=== PATIENT | female | born 1990 | race Caucasian/White ===

== ENCOUNTER → 2018-01-10 13:47 | Outpatient (REF) | payer MEDICAID, SELFPAY ==
[2018-01-10 19:00] LABS: Basophils % 0.4 % (0.1-2.0); Eosinophils # 0.3 K/mm3 (0.0-0.4); Hematocrit 42.8 % (37.0-47.0); Hemoglobin 13.3 g/dL (12.2-16.2); Lymphocytes % 19.8 K/mm3 (10-50); Mean Corpuscular HGB Conc 31.1 g/dL (31.8-35.4); Mean Corpuscular Hemoglobin 25.1 pg (27.0-31.2); Mean Corpuscular Volume 80.7 fl (81-99); Mean Platelet Volume 8.5 fl (7.4-10.4); Monocytes # 0.7 K/mm3 (0.1-1.0); Monocytes % 6.6 % (1.7-9.3); Neutrophils # 7.1 K/mm3 (1.8-7.8); Neutrophils % 70.2 % (37.0-80.0); Platelet Count 412 K/mm3 (142-424); Red Cell Distribution Width 15.8 % (11.5-17.5); White Blood Count 10.1 K/mm3 (4.8-10.8)
[2018-01-10 19:41] LABS: Alanine Aminotransferase 160 U/L (12-78); Albumin Level 3.8 gm/dL (3.4-5.0); Alkaline Phosphatase 157 U/L (46-116); Anion Gap 14.4 mEq/L (5-15); Aspartate Amino Transferase 83 U/L (15-37); Bilirubin,Total 0.2 mg/dL (0.2-1.0); Blood Urea Nitrogen 8 mg/dL (7-18); Calcium 9.4 mg/dL (8.5-10.1); Carbon Dioxide 27 mmol/L (21.0-32.0); Chloride 103 mmol/L (98-107); Cholesterol 131 mg/dL (140-200); Creatinine,Serum 0.56 mg/dL (0.55-1.02); Estimated Glomerular Filt Rate 128 ml/min (>60); GFR (African American) 155 ML/MIN (>60); Globulin 3.9 gm/dl (1.3-3.2); Glucose 80 mg/dL (74-106); HDL Cholesterol 33 mg/dL (29-89); LDL Cholesterol 68 mg/dL (0-130); Potassium 4.4 mmoL/L (3.5-5.1); Sodium 140 mmol/L (136-145); T4 (Thyroxine) 10.4 ug/dl (4.7-13.3); Thyroid Stimulating Hormone 7.19 uIU/ml (0.358-3.740); Total Protein,Serum 7.7 gm/dL (6.4-8.2); Triglycerides 148 mg/dL (30-200); VLDL Cholesterol 30 mg/dL (0-40)
[2018-01-11 06:46] LABS: Hemoglobin A1C 6.8 % (0.0-7.0)
[2018-01-12 09:20] LABS: Hep A Ab, IgM Negative (Negative); Hepatitis B Core Antibody IgM Negative (Negative); Hepatitis B Surface Antigen Negative (Negative)
[2018-01-13 10:41] LABS: Vitamin D 25 Hydroxy 15.6 ng/mL (30.0-100.0)
[2018-01-13 10:42] LABS: Hepatitis C Antibody <0.1 s/co ratio (0.0-0.9); Thyroid Peroxidase Antibodies 23 IU/mL (0-34)
[2018-01-16 14:18] LABS: Thyroid Stimulating Immunoglob <0.10 IU/L (0.00-0.55)
== END ==
LOC: LAB 13:47
PROVIDERS: Visit Provider Physician Assistant
DX: R53.83 Other fatigue (principal); R63.5 Abnormal weight gain; R01.1 Cardiac murmur, unspecified
CPT/HCPCS: 80053; 80061; 80074; 82652; 83036; 83520; 84436; 84443; 85025; 86376; 86703; G0432

== ENCOUNTER → 2018-01-16 12:02 | Outpatient (CLI) | payer MEDICAID, SELFPAY ==
[2018-01-17 12:09] LABS: HIV Screen 4th Generation wRfx Non Reactive (Non Reactive)
== END ==
PROVIDERS: Visit Provider Physician Assistant
DX: Z20.2 Contact with and (suspected) exposure to infections with a predominantly sexual mode of transmission (principal)
CPT/HCPCS: 36415; 86703; G0432

== ENCOUNTER → 2018-01-23 09:36 | Outpatient (CLI) | payer MEDICAID, SELFPAY ==
--- NOTE | 2018-01-23 09:39 | CA_ITS ---
PROCEDURE: 2-D M-mode and color Doppler study INDICATIONS FOR THE TEST: Chest pain COPD Heart Murmur+ Tobacco Smoking Palpitations Fatigue Syncope Edema Hypertension Diabetes Mellitus Rheumatic Fever SOB BERGERON Obesity Hyperlipidemia Family History HD Additional History PATIENT INFORMATION HEIGHT: 64 WEIGHT:285 GENDER: Female B/P:126/78 2-D/M-MODE INTERPRETATION: 2-D MEASUREMENTS OBSERVED VALUES IN CMS Right Ventricular Dimension (RVDd) 2.2 Interventricular Septum (Thickness)(IVsd) 1.3 Left Ventricular Internal Dimensions(LVIDd) 4.8 Left Ventricular Posterior Wall (Thickness)(LVPWd) 0.9 Aortic Root 2.4 Aortic Cusp Separation 1.8 Left Atrial Dimensions (LAD) 4.0 2D 1. Left atrium is upper limit of normal size, left ventricle wall thickness is upper limit of normal, there is preserved left ventricular systolic function, visually estimated ejection fraction 55-60% with no obvious regional wall motion abnormality. 2. The right atrium and right ventricle are relatively normal size and function. 3. The aortic valve is minimally thickened and fibrosed. 4. The mitral and tricuspid valvular grossly normal. 5. The pulmonic valve is poorly visualized. 6. No significant pericardial effusion noted. DOPPLER INTERROGATION: Doppler interrogation of the aortic, mitral and tricuspid valvular presence of mild mitral and tricuspid regurgitation, tricuspid and jet velocity insufficient for calculation of the right ventricular systolic pressure, diastolic parameters are inconclusive. CONCLUSION: 1. Normal left ventricular size, preserved left ventricular systolic function, visually estimated ejection fraction 55-60% no signal wall motion abnormality, diastolic parameters are inconclusive. 2. Mild mitral and tricuspid regurgitation. 3. No significant pericardial effusion noted.
== END ==
PROVIDERS: PCP Physician Assistant; Visit Provider Physician Assistant
DX: R01.1 Cardiac murmur, unspecified (principal)
CPT/HCPCS: 93306

== ENCOUNTER → 2018-04-27 11:56 | Outpatient (REF) | payer MEDICAID, SELFPAY ==
[2018-04-27 19:14] LABS: Basophils % 0.4 % (0.1-2.0); Eosinophils # 0.3 K/mm3 (0.0-0.4); Eosinophils % 3.3 % (0.1-12.0); Hematocrit 41.2 % (37.0-47.0); Hemoglobin 12.9 g/dL (12.2-16.2); Lymphocytes # 1.6 K/mm3 (0.7-4.5); Lymphocytes % 20.1 K/mm3 (10-50); Mean Corpuscular HGB Conc 31.3 g/dL (31.8-35.4); Mean Corpuscular Volume 83.1 fl (81-99); Mean Platelet Volume 8.2 fl (7.4-10.4); Monocytes # 0.4 K/mm3 (0.1-1.0); Monocytes % 4.8 % (1.7-9.3); Neutrophils # 5.9 K/mm3 (1.8-7.8); Neutrophils % 71.5 % (37.0-80.0); Platelet Count 313 K/mm3 (142-424); Red Blood Count 4.95 M/mm3 (4.20-5.40); Red Cell Distribution Width 15.2 % (11.5-17.5); White Blood Count 8.2 K/mm3 (4.8-10.8)
[2018-04-27 19:42] LABS: Alanine Aminotransferase 135 U/L (12-78); Albumin Level 3.7 gm/dL (3.4-5.0); Albumin/Globulin Ratio 0.9 (1.1-1.8); Alkaline Phosphatase 157 U/L (46-116); Anion Gap 13.2 mEq/L (5-15); Aspartate Amino Transferase 70 U/L (15-37); Bilirubin,Total 0.3 mg/dL (0.2-1.0); Blood Urea Nitrogen 9 mg/dL (7-18); Calcium 9.3 mg/dL (8.5-10.1); Carbon Dioxide 26 mmol/L (21.0-32.0); Chloride 104 mmol/L (98-107); Chol/HDL Ratio 3.6 (1-3.5); Cholesterol 128 mg/dL (140-200); Creatinine,Serum 0.82 mg/dL (0.55-1.02); Estimated Glomerular Filt Rate 82 ml/min (>60); Free T4 (Free Thyroxine) 1.44 ng/dl (0.76-1.46); GFR (African American) 100 ML/MIN (>60); Globulin 3.9 gm/dl (1.3-3.2); Glucose 202 mg/dL (74-106); HDL Cholesterol 36 mg/dL (29-89); LDL Cholesterol 67 mg/dL (0-130); Potassium 4.2 mmoL/L (3.5-5.1); Sodium 139 mmol/L (136-145); Thyroid Stimulating Hormone 4.55 uIU/ml (0.358-3.740); Total Protein,Serum 7.6 gm/dL (6.4-8.2); Triglycerides 127 mg/dL (30-200); VLDL Cholesterol 25 mg/dL (0-40)
[2018-04-29 18:04] LABS: Vitamin D 25 Hydroxy 34.8 ng/mL (30.0-100.0)
== END ==
LOC: LAB 11:56
PROVIDERS: Visit Provider Physician Assistant
DX: R74.8 Abnormal levels of other serum enzymes (principal); R63.5 Abnormal weight gain; E03.9 Hypothyroidism, unspecified; E55.9 Vitamin D deficiency, unspecified
CPT/HCPCS: 80053; 80061; 82652; 84439; 84443; 85025

== ENCOUNTER → 2019-03-20 16:53 | Outpatient (CLI) | payer BC, SELFPAY ==
--- NOTE | 2019-03-20 16:57 | XR_ITS ---
XR foot wt bearing LT 3V HISTORY: ITS.REASON: pain ORDERING PHYSICIAN: Sasha Rosario DPM PATIENT AGE: 28 years COMPARISON: None FINDINGS: No fracture or dislocation. No lytic or blastic change. There is normal mineralization.. The joint spaces are well-preserved. No significant degenerative/arthritic changes. No erosive changes evident. There is a 7 mm plantar calcaneal spur and flattening of the plantar arch. There is a 3 mm corticated ossific density just superior to one of the cuneiform bones on the lateral view. This is not seen on the other views. The cortex of the cuneiform bone is intact. IMPRESSION: No acute fracture. Flattening plantar arch. Calcaneal spur. Small corticated density adjacent to the cuneiform bone could be degenerative or related to old injury.
--- NOTE | 2019-03-20 16:57 | XR_ITS ---
XR foot wt bearing RT 3V HISTORY: ITS.REASON: pain ORDERING PHYSICIAN: Sasha Rosario DPM PATIENT AGE: 28 years COMPARISON: None FINDINGS: No fracture or dislocation. No lytic or blastic change. There is normal mineralization.. The joint spaces are well-preserved. No significant degenerative/arthritic changes. No erosive changes evident. There is a 7 mm plantar calcaneal spur. There is flattening of the plantar arch. IMPRESSION: No acute process. Plantar calcaneal spur. Flattening of the plantar arch.
== END ==
PROVIDERS: Visit Provider Podiatrist
DX: M79.673 Pain in unspecified foot (principal)
CPT/HCPCS: 73630

== ENCOUNTER 2020-05-01 09:40 | Emergency (ER) | payer BC, SELFPAY ==
[2020-05-01 09:41] VITALS: BP 132/74; PULSE 90; RESP 16; TEMP 37.4; O2SAT 98; BMI 40.7
--- NOTE | 2020-05-01 09:53 | HMH.EDGENADL ---
ED Disposition Clinical Impression: Upper respiratory infection Qualifiers: URI type: unspecified viral URI Qualified Code(s): J06.9 - Acute upper respiratory infection, unspecified Disposition: Home, Self-Care Condition on Discharge: Good Instructions: DI for Acute Bronchitis Additional Instructions: You appear to have upper respiratory tract infection please take medications prescribed Prescriptions: methylPREDNISolone [Medrol 4mg tab] 4 mg PO DIRECTED #21 tab Transmission Status: Pending to [id number] Cetirizine HCl [Zyrtec] 10 mg PO DAILY 10 Days #10 cap Transmission Status: Pending to [id number] Referrals: Meme Mckeon PA [Primary Care Provider] - Forms: Work/School Release - Critical Care Critical Care Time: No Attestation: On , the high probability of a clinically significant, sudden or life threatening deterioration of the following system(s) required my full and direct attention, intervention and personal management. The time I documented below is in addition to time spent performing reported procedures but includes the following listed in this critical care notation. Medical Decision Making - Medical Records Medical records reviewed: Yes: I reviewed the patient's medical records. MR Comment: Patient is here with a complaint of cough and congestion states she missed work last night, does not smoke and does not appear to be in any distress at this time. Plan is to discharge patient home with prescription for Medrol Dosepak as well as Zyrtec will also give her a note for work today - Luis Inquiry Pt receiving controlled substance: No Luis was queried for this patient: No Vital Signs: 05/01/20 09:41 Temperature 99.4 F Temperature Source Oral Pulse Rate [Left Brachial] 90 Respiratory Rate 16 Blood Pressure [Right Arm] 132/74 Blood Pressure Mean [Right Arm] 93 Blood Pressure Position [Right Arm] Sitting 02 Sat by Pulse Oximetry 98 Oxygen Delivery Method Room Air General Adult HPI - General Chief complaint: Upper Respiratory Infection Stated complaint: runny nose sore throat Time Seen by Provider: 05/01/20 09:51 Mode of Arrival: Ambulatory Source of Information: Patient Limitations: No Limitations Description of Symptoms (Recalled from ER Triage Doc. by RN): to ed per pvt car with c/o sorethroat, nasal drainage, cough nonproductive starting yesterday. pt denies fever, sick contacts. - History of Present Illness HPI narrative: Patient is here with a complaint of cough and congestion states she missed work last night, not smoke and does not appear to be in any distress at this time Onset (ago): day(s) Severity: mild Severity scale (1-10): 2 Quality: other Consistency: constant Relieving factors: none Exacerbating factors: none Associated symptoms: cough - Related Data Previous Rx's Medication Instructions Recorded promethazine 12.5 mg tablet 12.5 mg PO Q6H #10 tab 12/05/19 meloxicam 7.5 mg tablet 7.5 mg PO DAILY 30 Days #30 tab 12/17/19 Cetirizine HCl [Zyrtec] 10 mg PO DAILY 10 Days #10 cap 05/01/20 methylPREDNISolone [Medrol 4mg 4 mg PO DIRECTED #21 tab 05/01/20 tab] Allergies Allergy/AdvReac Type Severity Reaction Status Date / Time Sulfa (Sulfonamide Allergy Mild Verified 12/05/19 13:04 Antibiotics) [SULFA (SULFONAMIDE ANTIBIOTICS)] [facility] History - Hepatitis A Screen Drug use history?: No High risk sexual behaviors?: No History of sexually transmitted infection?: No Currently employed?: No Childcare worker?: No Do you have indoor plumbing?: Yes Do you have electricity?: Yes Attestation statement:: This patient has been screened for Hepatitis A risk factors. I have reviewed the patient's past medical history: Yes Medical History: Reports:: Anxiety, Depression, Heart Murmur Other Medical History: Reports: Other Comment: THYROID ISSUES Laterality Cases: Bilateral: Tonsillectomy Other Surgeries: Ye
[2020-05-01 10:15] VITALS: BP 132/75; PULSE 78; RESP 16; TEMP 36.6; O2SAT 98
== END 2020-05-01 10:16 | disposition home or self-care (01) ==
LOC: ER 10:09
PROVIDERS: Emergency Provider Emergency Medicine; PCP Physician Assistant
DX: J06.9 Acute upper respiratory infection, unspecified (principal); F41.8 Other specified anxiety disorders; R01.1 Cardiac murmur, unspecified; Z88.2 Allergy status to sulfonamides; Z79.899 Other long term (current) drug therapy
CPT/HCPCS: 99281

== ENCOUNTER → 2020-05-04 16:21 | Outpatient (CLI) | payer BC, SELFPAY ==
--- NOTE | 2020-05-04 20:03 | PC.NURSE ---
COVID TEST POSITIVE, PATIENT NOTIFIED, MD AWARE OF RESULTS.
== END ==
PROVIDERS: PCP Physician Assistant; Visit Provider Nurse Practitioner Family
DX: Z20.828 Contact with and (suspected) exposure to other viral communicable diseases (principal); U07.1 COVID-19
CPT/HCPCS: U0003

== ENCOUNTER → 2020-10-20 18:10 | Outpatient (CLI) | payer BC, SELFPAY ==
[2020-10-22 11:54] LABS: Covid-19 Nasal PCR Sendout P&C Negative
== END ==
PROVIDERS: PCP Physician Assistant; Visit Provider Physician Assistant
DX: Z20.822 Contact with and (suspected) exposure to COVID-19 (principal)
CPT/HCPCS: U0004

== ENCOUNTER → 2020-10-23 17:59 | Outpatient (CLI) | payer BC, SELFPAY ==
[2020-10-23 18:17] LABS: Basophils % 0.4 % (0.1-2.0); Eosinophils # 0.3 K/mm3 (0.0-0.4); Eosinophils % 2.8 % (0.1-12.0); Hematocrit 41.2 % (37.0-47.0); Hemoglobin 12.8 g/dL (12.2-16.2); Lymphocytes # 2.2 K/mm3 (0.7-4.5); Lymphocytes % 21.6 % (10-50); Mean Corpuscular Hemoglobin 25.2 pg (27.0-31.2); Mean Corpuscular Volume 81.2 fl (81-99); Mean Platelet Volume 7.3 fl (7.4-10.4); Monocytes # 0.6 K/mm3 (0.1-1.0); Monocytes % 5.8 % (1.7-9.3); Neutrophils % 69.4 % (37.0-80.0); Platelet Count 392 K/mm3 (142-424); Red Blood Count 5.08 M/mm3 (4.20-5.40); Red Cell Distribution Width 14.2 % (11.5-17.5); White Blood Count 10.1 K/mm3 (4.8-10.8)
[2020-10-23 18:21] LABS: Alanine Aminotransferase 60 U/L (12-78); Albumin Level 4.3 g/dl (3.5-5.0); Albumin/Globulin Ratio 1.3 (1.1-1.8); Alkaline Phosphatase 121 U/L (38-126); Anion Gap 15.9 mEq/L (5-15); Aspartate Amino Transferase 43 U/L (14-36); Bilirubin,Total 0.4 mg/dl (0.2-1.3); Blood Urea Nitrogen 12 mg/dl (7-17); Calcium 9.9 mg/dl (8.4-10.2); Carbon Dioxide 25 mmol/L (22.0-30.0); Chloride 101 mmol/L (98-107); Chol/HDL Ratio 3.6 (1-3.5); Cholesterol 153 mg/dl (140-200); Estimated Glomerular Filt Rate 116 ml/min (>60); GFR (African American) 140 ML/MIN (>60); Globulin 3.3 g/dL (1.3-3.2); Glucose 137 mg/dl (74-100); HDL Cholesterol 42 mg/dl (40-60); Potassium 3.9 mmoL/L (3.5-5.1); Sodium 138 mmol/L (136-145); Total Protein,Serum 7.6 g/dl (6.3-8.2); Triglycerides 347 mg/dl (30-150); VLDL Cholesterol 69 mg/dL (0-40)
[2020-10-23 18:33] LABS: Direct LDL Cholesterol 60.73 mg/dL (100-129)
[2020-10-23 18:39] LABS: 25-OH Vitamin D, Total 19.3 ng/mL (30-100)
[2020-10-23 18:57] LABS: Free T4 (Free Thyroxine) 0.86 ng/dl (0.78-2.19)
== END ==
PROVIDERS: Visit Provider Physician Assistant
DX: Z00.00 Encounter for general adult medical examination without abnormal findings (principal); E55.9 Vitamin D deficiency, unspecified; Z79.899 Other long term (current) drug therapy
CPT/HCPCS: 80053; 80061; 82306; 84439; 84443; 85025

== ENCOUNTER → 2020-11-13 13:27 | Outpatient (CLI) | payer BC, SELFPAY ==
--- NOTE | 2020-11-13 13:31 | XR_ITS ---
PROCEDURE: XR RIBS LT MIN 3V W CXR2V CLINICAL INDICATION: left rib pain COMPARISON: None FINDINGS: Lungs are well expanded and clear without pneumothorax pulmonary edema, pleural effusion, infiltrate or x-ray evidence of lung contusion or aspiration. Cardiac and mediastinal contours are within normal limits. Subtle nondisplaced left anterolateral rib fracture with focal pleural thickening suspected visible only on one view. There is no pneumothorax. No additional areas suspicious for fracture. IMPRESSION: Suspect nondisplaced left 5th rib fracture. No pneumothorax. Dictated by: Oneida Camacho MD 11/13/2020 14:50 Oneida Camacho MD in [place] 11/13/2020 14:50
== END ==
PROVIDERS: PCP Physician Assistant; Visit Provider Physician Assistant
DX: R05 Cough (principal)
CPT/HCPCS: 71046; 71101

== ENCOUNTER 2020-11-15 17:38 | Emergency (ER) | payer BC, SELFPAY ==
[2020-11-15 17:47] VITALS: BP 135/76; PULSE 83; RESP 18; TEMP 36.8; O2SAT 99; BMI 41.0
[2020-11-15 18:07] VITALS: BP 135/76; PULSE 83; RESP 18; TEMP 36.8; O2SAT 99; BMI 40.9
--- NOTE | 2020-11-15 18:18 | HMH.EDUTC ---
[facility] [place] Clinical Impression: Rib fracture Qualifiers: Encounter type: initial encounter Rib fracture type: single rib Fracture type: closed Laterality: left Qualified Code(s): S22.32XA - Fracture of one rib, left side, initial encounter for closed fracture Disposition: Home, Self-Care Condition on Discharge: Good Instructions: Rib Fracture, DI for Rib Fracture Additional Instructions: WHAT YOU NEED TO KNOW: A rib fracture is a crack or break in a rib bone. Rib fractures usually heal within 6 weeks. You should be able to return to normal activities before that time. Do not wrap anything around your body to try to splint your ribs. This can prevent you from taking deep breaths and increases your risk for pneumonia Call 911 You have trouble breathing. Follow up with your healthcare provider as directed: Deep breathing: Deep breathing will decrease your risk for pneumonia. Hug a pillow on the injured side while doing this exercise, to decrease pain. Take a deep breath and hold it for as long as possible. You should let the air out and then cough strongly. Deep breaths help open your airway. Rest: Rest and limit activity to decrease swelling and pain, and allow your injury to heal. Avoid activities that may cause more pain or damage to your ribs such as, pulling, pushing, and lifting. As your pain decreases, begin movements slowly. Take short walks between rest periods. Ice: Apply ice on the fractured area for 15 to 20 minutes every hour or as directed. Use an ice pack or put crushed ice in a plastic bag. Cover it with a towel. Ice helps prevent tissue damage and decreases swelling and pain. Over the counter Lidocaine/Pain patches may help with pain and discomfort with rib fractures Return if needed Straight to ER if any life threatening symptoms, sudden onset of shortness of breath etc Follow up with your Family Doctor if no improvement, rib fracture can take a little while to heal Continue using pillow on area may help with pain Do not wrap the ribs, this was done in the past but no longer recommended due to Pneumonia Referrals: Meme Mckeon PA [Primary Care Provider] - As needed Time of Disposition: 18:41 Medical Decision Making - Luis Inquiry Pt receiving controlled substance: No Luis was queried for this patient: No Vital Signs: 11/15/20 17:47 11/15/20 18:07 Temperature 98.2 F 98.2 F Temperature Source Oral Oral Pulse Rate [Left Radial] 83 83 Respiratory Rate 18 18 Blood Pressure [Left Arm] 135/76 135/76 Blood Pressure Mean [Left Arm] 95 95 Blood Pressure Source [Left Arm] Automatic Cuff Automatic Cuff Blood Pressure Position [Left Arm] Sitting Sitting 02 Sat by Pulse Oximetry 99 99 Oxygen Delivery Method Room Air Room Air Orders (Tests/Meds): ORDERS Category Date Time Status XR ribs LT 2V Stat Exams 11/15/20 18:00 Stop Req Medical Decision Narrative: Patient denies new injury discussed repeat xray but patient just had xray 2 days ago and came in to see what else she can take or do for the pain of fracture rib so xray not repeated Discussed the use of over the counter lidocaine patches may help with pain and if no improvement follow up with [facility] [place] HPI - General Stated complaint: Left rib fx from coughing Time Seen by Provider: 11/15/20 18:18 Mode of Arrival: Ambulatory Source of Information: Patient Limitations: No Limitations Description of Symptoms (Recalled from Triage Doc. by RN): pt c/o L sided rib pain, pt reports was told 2 days ago that she has a broken rib. Pt reports no injury but has had a cough for approx 1 month. Pt reports she is taking hydrocodone but reports pain is not improving. Pt denies SOA, no distress noted. HEENT Symptoms (Recalled from RN notes): No Resp Symptoms (Recalled from RN notes): No Skin Symptoms (Recalled from RN notes): No MS Symptoms (Recalled from RN notes): Yes Functional Status (Recalled from RN notes): WNL - History of Prese
[2020-11-15 18:45] VITALS: BP 135/76; PULSE 83; RESP 18; TEMP 36.8; O2SAT 99
== END 2020-11-15 18:49 | disposition home or self-care (01) ==
LOC: ER 17:51 → UTC 17:55
PROVIDERS: Emergency Provider Nurse Practitioner; PCP Physician Assistant
DX: S22.32XA Fracture of one rib, left side, initial encounter for closed fracture (principal); R05 Cough; F41.8 Other specified anxiety disorders; R01.1 Cardiac murmur, unspecified; Z88.2 Allergy status to sulfonamides
CPT/HCPCS: 99202; G0463

== ENCOUNTER → 2020-12-29 15:26 | Outpatient (CLI) | payer BC, SELFPAY ==
[2020-12-29 15:52] LABS: Amphetamine/Metha Screen,Urine Negative ng/ml (<1000); Barbiturates Screen,Urine Negative ng/ml (<200)
[2020-12-29 15:53] LABS: Benzodiazepines Screen,Urine Negative ng/ml (<200)
[2020-12-29 15:55] LABS: Cannabinoid Screen,Urine Negative ng/ml (<50)
[2020-12-29 15:56] LABS: Cocaine Screen,Urine Negative ng/ml (<300)
[2020-12-29 15:57] LABS: Methadone Screen,Urine Negative ng/ml (<300)
[2020-12-29 15:58] LABS: Opiate Screen,Urine Negative ng/ml (<300); Phencyclidine Screen,Urine Negative ng/ml (<25)
[2020-12-29 20:28] LABS: Hemoglobin A1C 5.9 % (4.0-6.0)
[2020-12-31 13:54] LABS: Hep A Ab, IgM Negative (Negative); Hepatitis B Core Antibody IgM Negative (Negative); Hepatitis B Surface Antigen Negative (Negative)
[2020-12-31 17:19] LABS: HIV Screen 4th Generation wRfx Non Reactive (Non Reactive); Hepatitis C Antibody <0.1 s/co ratio (0.0-0.9); Rapid Plasma Reagin Ab Titer Non Reactive (NonRea<1:1)
[2021-01-02 12:23] LABS: Neisseria gonorrhoeae, NAA Negative (Negative)
== END ==
PROVIDERS: Visit Provider Physician Assistant
DX: Z20.2 Contact with and (suspected) exposure to infections with a predominantly sexual mode of transmission (principal); R73.09 Other abnormal glucose; Z79.899 Other long term (current) drug therapy
CPT/HCPCS: 80074; 80305; 83036; 86592; 86703; 87491; 87591; G0432

== ENCOUNTER → 2021-02-26 10:06 | Outpatient (CLI) | payer BC, SELFPAY ==
[2021-03-02 17:48] LABS: Neisseria gonorrhoeae, NAA Negative (Negative)
== END ==
PROVIDERS: Visit Provider Nurse Practitioner Family
DX: Z20.2 Contact with and (suspected) exposure to infections with a predominantly sexual mode of transmission (principal)
CPT/HCPCS: 87210; 87491; 87591

== ENCOUNTER → 2021-08-21 12:47 | Outpatient (CLI) | payer BC, SELFPAY ==
--- NOTE | 2021-08-21 12:53 | XR_ITS ---
PROCEDURE: XR FOOT WT BEARING RT 3V CLINICAL INDICATION: pain COMPARISON: No exams were available for comparison FINDINGS: No fracture or dislocation. No lytic or blastic change. There is normal mineralization. Mild bony hypertrophic changes along the 1st tarsal metatarsal junction anteriorly. Small calcaneal spur. IMPRESSION: Mild degenerative changes. Dictated by: Owen Carrillo MD 08/21/2021 14:35 Owen Carrillo MD in [place] 08/21/2021 14:35
== END ==
PROVIDERS: PCP Physician Assistant; Visit Provider Nurse Practitioner
DX: M79.671 Pain in right foot (principal)
CPT/HCPCS: 73630

== ENCOUNTER → 2021-09-29 18:03 | Outpatient (CLI) | payer BC, SELFPAY | PROVIDERS: PCP Physician Assistant; Visit Provider Nurse Practitioner | DX: Z20.822 Contact with and (suspected) exposure to COVID-19 (principal) | CPT/HCPCS: C9803; U0003; U0005 ==

== ENCOUNTER 2021-10-10 22:22 | Emergency (ER) | payer BC, SELFPAY ==
[2021-10-10 22:23] VITALS: BP 144/99; PULSE 77; RESP 16; TEMP 36.7; O2SAT 98; BMI 41.5
--- NOTE | 2021-10-10 22:33 | HMH.EDGENADL ---
ED Disposition Clinical Impression: Left wrist sprain Qualifiers: Encounter type: initial encounter Qualified Code(s): S63.502A - Unspecified sprain of left wrist, initial encounter Disposition: Home, Self-Care Condition on Discharge: Good Instructions: Sprain Additional Instructions: Return to the emergency department for any new or concerning symptoms, if you're continuing to have significant pain recommend a repeat x-ray and 1.5 weeks. Referrals: Provider,Referral, [Primary Care Provider] - - Critical Care Critical Care Time: No Attestation: On 10/10/21, the high probability of a clinically significant, sudden or life threatening deterioration of the following system(s) required my full and direct attention, intervention and personal management. The time I documented below is in addition to time spent performing reported procedures but includes the following listed in this critical care notation. Medical Decision Making - Medical Records Medical records reviewed: Yes: I reviewed the patient's medical records. - Luis Inquiry Pt receiving controlled substance: No Vital Signs: 10/10/21 22:23 Temperature 98.1 F Temperature Source Oral Pulse Rate [Left] 77 Respiratory Rate 16 Blood Pressure [Right Arm] 144/99 H Blood Pressure Mean [Right Arm] 114 02 Sat by Pulse Oximetry 98 Orders (Tests/Meds): ED MEDICATIONS Discontinued Medications Generic Name Dose Route Start Last Admin Trade Name Jesica PRN Reason Stop Dose Admin Acetaminophen 650 mg 10/10/21 22:39 Acetaminophen 650mg Suppository RC 10/10/21 22:40 ONCE ONE Acetaminophen 650 mg 10/10/21 23:06 10/10/21 23:07 Acetaminophen 325mg Tab PO 10/10/21 23:07 650 mg ONCE ONE Administration Ibuprofen 600 mg 10/10/21 22:39 10/10/21 22:50 Ibuprofen 600 Mg Tablet PO 10/10/21 22:40 600 mg ONCE ONE Administration Medical Decision Narrative: Patient is a 31-year-old female who presents emerged department chief complaint of a fall and wrist pain. Differential diagnosis for the patient includes radial fracture, ulnar fracture, contusion, sprain among others. Plan to order x-rays of the patient's hand as well as the patient's left forearm. X-rays are nonconcerning for acute fracture. Patient has some mild tenderness on the palmar aspect. Will give velcro wrist splint. Discussed with patient if she continues to have pain, she has more pain on her fourth aspect she may need repeat x-ray and 1 and half to 2 weeks. General Adult HPI - General Stated complaint: AO fall 1800 injured L wrist Time Seen by Provider: 10/10/21 22:34 - History of Present Illness HPI narrative: Patient is a 31-year-old female presenting to the emergency department with chief complaint of a fall. Patient states that she tripped and fell she attempted to catch herself, and caught herself partially on her wrist. She is mostly complaining of left wrist pain. She has no numbness or tingling but has pain with movement of her wrist. Some mild abrasion just over the area of her ventral wrist at an area of eczema. She denies any additional injuries, has no additional complaints. She did not take anything for the pain prior to presenting here. - Related Data Home Medications Medication Instructions Recorded Confirmed acetaminophen 325 mg capsule 325 mg PO QID PRN 07/15/21 07/15/21 Previous Rx's Medication Instructions Recorded meloxicam 7.5 mg tablet 7.5 mg PO DAILY 30 Days #30 tab 08/24/21 Allergies Allergy/AdvReac Type Severity Reaction Status Date / Time Sulfa (Sulfonamide Allergy Mild Verified 07/15/21 14:17 Antibiotics) [SULFA (SULFONAMIDE ANTIBIOTICS)] [facility] History - Hepatitis A Screen Attestation statement:: This patient has been screened for Hepatitis A risk factors. I have reviewed the patient's past medical history: Yes Medical History: Reports:: Anxiety, Depression, Heart Murmur Other Medical H
--- NOTE | 2021-10-10 22:37 | XR_ITS ---
PROCEDURE INFORMATION: Exam: XR Left Forearm Exam date and time: 10/10/2021 10:37 PM Age: 31 years old Clinical indication: Injury or trauma; Fall; Blunt trauma (contusions or hematomas); Hand; Left; Additional info: Anterior wrist pain, fall TECHNIQUE: Imaging protocol: XR Left forearm. Views: 2 views. COMPARISON: CR XR HAND LT MIN 3V 10/10/2021 10:37 PM FINDINGS: Bones/joints: Normal. Soft tissues: Normal. IMPRESSION: No acute findings.
--- NOTE | 2021-10-10 22:37 | XR_ITS ---
PROCEDURE INFORMATION: Exam: XR Left Hand Exam date and time: 10/10/2021 10:37 PM Age: 31 years old Clinical indication: Injury or trauma; Fall; Blunt trauma (contusions or hematomas); Hand; Left; Additional info: Fall, C/O pain in left palm into left anterior wrist area TECHNIQUE: Imaging protocol: XR Left hand. Views: 3 or more views. COMPARISON: No relevant prior studies available. FINDINGS: Bones/joints: Normal. Soft tissues: Normal. IMPRESSION: No acute findings.
[2021-10-10 23:01] VITALS: BP 130/90; PULSE 83; O2SAT 97
[2021-10-11 00:15] VITALS: BP 140/73; PULSE 82; RESP 16; TEMP 36.6; O2SAT 98
== END 2021-10-11 00:17 | disposition home or self-care (01) ==
PROVIDERS: Emergency Provider Emergency Medicine
DX: S63.502A Unspecified sprain of left wrist, initial encounter (principal); W01.0XXA Fall on same level from slipping, tripping and stumbling without subsequent striking against object, initial encounter; Y92.019 Unspecified place in single-family (private) house as the place of occurrence of the external cause; Z88.2 Allergy status to sulfonamides; R01.1 Cardiac murmur, unspecified
CPT/HCPCS: 73090; 73130; 99282

== ENCOUNTER → 2021-10-14 12:09 | Outpatient (CLI) | payer BC, SELFPAY ==
--- NOTE | 2021-10-14 12:17 | XR_ITS ---
FINAL REPORT CLINICAL HISTORY: left thumb pain ordered as left wrist with scaphoid FINDINGS: LEFT WRIST 3 views were obtained including a scaphoid view. There is no acute fracture or dislocation. The joint spaces are intact. There is a small calcification adjacent to the trapezium which may represent a small loose body. IMPRESSION: No acute bony abnormality. Reviewed, Interpreted and Dictated by Pancho Duran III, MD Transcribed by Annetta Gonzalez Authenticated by Pancho Duran III, MD on 10/14/2021 01:27:50 PM [facility]
== END ==
LOC: RAD 12:10
PROVIDERS: PCP Physician Assistant; Visit Provider Physician Assistant
DX: M79.645 Pain in left finger(s) (principal); M25.532 Pain in left wrist
CPT/HCPCS: 73110

== ENCOUNTER 2021-10-14 12:28 | Outpatient (RCR) | payer BC, SELFPAY | END 2021-10-14 13:27 | disposition home or self-care (01) | LOC: OT 12:28 | PROVIDERS: Visit Provider Physician Assistant | DX: M79.645 Pain in left finger(s) (principal) | CPT/HCPCS: 97763 ==

== ENCOUNTER → 2021-10-26 08:30 | Outpatient (CLI) | payer BC, SELFPAY ==
[2021-10-27 06:42] LABS: Covid-19 Nasal PCR Sendout Lex NOT DETECTED
== END ==
PROVIDERS: Visit Provider Nurse Practitioner
DX: Z20.822 Contact with and (suspected) exposure to COVID-19 (principal)
CPT/HCPCS: C9803; U0004; U0005

== ENCOUNTER 2022-01-25 19:17 | Emergency (ER) | payer BC, SELFPAY ==
[2022-01-25 19:53] VITALS: BP 0/0; PULSE 0; RESP 0; TEMP -17.7; TEMP 0
== END 2022-01-25 19:54 | disposition left against medical advice (07) ==
LOC: UTC 19:20
PROVIDERS: Emergency Provider Nurse Practitioner Family; PCP Physician Assistant
DX: Z53.21 Procedure and treatment not carried out due to patient leaving prior to being seen by health care provider (principal)

== ENCOUNTER 2022-05-05 09:15 | Emergency (ER) | payer BC, SELFPAY ==
[2022-05-05 10:00] VITALS: BP 126/78; PULSE 77; RESP 18; TEMP 36.6; O2SAT 97; BMI 39.5
[2022-05-05 10:37] VITALS: BP 126/78; PULSE 77; RESP 18; TEMP 36.6; O2SAT 97
--- NOTE | 2022-05-05 10:38 | HMH.EDUTC ---
[facility] [place] Clinical Impression: Acute viral syndrome, Exposure to COVID-19 virus Disposition: Home, Self-Care Condition on Discharge: Good Instructions: Diarrhea, DI for Fever (Symptom) -- Adult, DI for COVID-19 (Suspected or Confirmed ), Preventing the Spread of Coronavirus Discharge Instructions Additional Instructions: *Monitor Temp, Over the counter Motrin or Tylenol as directed/as needed Tylenol every 4 hours and Motrin every 6 hours (as long as your family doctor has told you that you can take it) for fever or pain. and straight to ER if unable to lower temp less than 101.0 after medication given *Warm salt water gargles may help to soothe the throat *Throat Lozenges *Warm fluids like tea with honey may help to soothe the throat *Sleep elevated *Humidifier/Vaporizer Follow up IMMEDIATELY for new or worsening symptoms or no Noticeable improvement over the next 48-72 hours. 911 for difficulty breathing or swallowing You were tested for today for COVID19 your test result should be back in the next 24-48 hours, you may check your result on the [facility] My Health Portal Make sure to take your Vitamins Vit. C Vit D and Zinc if you can take them Referrals: Meme Mkceon PA [Primary Care Provider] - As needed Forms: Work/School Release Medical Decision Making - Luis Inquiry Pt receiving controlled substance: No Luis was queried for this patient: No Vital Signs: 05/05/22 10:00 05/05/22 10:37 Temperature 97.8 F 97.8 F Temperature Source Oral Pulse Rate 77 Pulse Rate [Right Brachial] 77 Respiratory Rate 18 18 Blood Pressure 126/78 Blood Pressure [Right Arm] 126/78 Blood Pressure Mean [Right Arm] 94 Blood Pressure Source [Right Arm] Automatic Cuff Blood Pressure Position [Right Arm] Sitting 02 Sat by Pulse Oximetry 97 Oxygen Delivery Method Room Air Orders (Tests/Meds): ORDERS Category Date Time Status Covid-19 Nasal PCR ([facility]) Routine Lab 05/05/22 10:00 Received [facility] [place]PI - General Stated complaint: [place], diarrhea, chills Time Seen by Provider: 05/05/22 10:39 Mode of Arrival: Ambulatory Source of Information: Patient Limitations: No Limitations Description of Symptoms (Recalled from Triage Doc. by RN): PATIENT C/O HEADACHE, BODY ACHES, CHILLS X 2 DAYS. RECENTLY EXPOSED TO COVID HEENT Symptoms (Recalled from RN notes): Yes Resp Symptoms (Recalled from RN notes): No Skin Symptoms (Recalled from RN notes): No MS Symptoms (Recalled from RN notes): No Functional Status (Recalled from RN notes): WNL - History of Present Illness Provider Complaint: Patient states that her daughter recently tested positive for COVID States that she has been having fever, chills, body aches and headache for the last couple of days and thinks that she may have COVID now too so she came in to get tested - Related Data Previous Rx's Medication Instructions Recorded ibuprofen 800 mg tablet 800 mg PO Q8H #90 tab 10/14/21 phentermine 37.5 mg tablet 37.5 mg PO DAILY #30 tab 10/14/21 Allergies Allergy/AdvReac Type Severity Reaction Status Date / Time Sulfa (Sulfonamide Allergy Mild Verified 10/14/21 08:49 Antibiotics) [SULFA (SULFONAMIDE ANTIBIOTICS)] - Worker's Comp Is this a Worker's Comp case?: No [facility] History - Hepatitis A Screen Attestation statement:: This patient has been screened for Hepatitis A risk factors. I have reviewed the patient's past medical history: Yes Medical History: Reports:: Anxiety, Depression, Heart Murmur Other Medical History: Reports: Other Comment: THYROID ISSUES Laterality Cases: Bilateral: Tonsillectomy Other Surgeries: Yes: Other Amputation: No Fractures: No Comment: RIGHT OVARY TUMOR REMOVED - Social History Smoking Status: Never smoker Alcohol Intake: never Alcohol Intake Frequency:: other Substance Use Type: denies use Occupational Status: other Housing: other Household Members: other - Psychiatric History Pschych
== END 2022-05-05 10:58 | disposition home or self-care (01) ==
PROVIDERS: Emergency Provider Nurse Practitioner; PCP Physician Assistant
DX: B34.9 Viral infection, unspecified (principal); R19.7 Diarrhea, unspecified; R68.83 Chills (without fever)
CPT/HCPCS: 99212; C9803; G0463; U0003; U0005

== ENCOUNTER 2022-08-23 12:59 | Emergency (ER) | payer BC, SELFPAY ==
[2022-08-23 13:01] VITALS: BP 134/84; PULSE 81; RESP 16; TEMP 36.8; O2SAT 98; BMI 39.5
--- NOTE | 2022-08-23 13:27 | XR_ITS ---
FINAL REPORT CLINICAL HISTORY: fever COMPARISON: 08/09/2022 FINDINGS: PORTABLE CHEST The heart is normal in size. The mediastinum is unremarkable. The lungs are clear. There is no pneumothorax. IMPRESSION: No acute process. No change from the prior exam. Reviewed, Interpreted and Dictated by Jana Smart MD Transcribed by Annetta Gonzalez Authenticated and [facility]
--- NOTE | 2022-08-23 14:53 | HMH.EDGENADL ---
Discharge Plan Disposition Chief Complaint: Upper Respiratory Infection Prescriptions Prescriptions: No Action phentermine [Adipex-P] 37.5 mg tablet 37.5 mg PO DAILY Qty: 30 0RF Rx Instructions: must administer 30 minutes before or 1-2 hours after breakfast ibuprofen 800 mg tablet 800 mg PO Q8H Qty: 90 2RF Referrals Follow up/Referrals: Meme Mckeon PA [Primary Care Provider] - See instructions Discharge ED Provider: Terry Linares Adult HPI General Chief complaint: Upper Respiratory Infection Stated complaint: headache soa head congestion Time Seen by Provider: 08/23/22 13:24 Mode of Arrival: Ambulatory Limitations: No Limitations Description of Symptoms (Recalled from ER Triage Doc. by RN): pt c/o headache, body aches, and cough that started 2 days ago History of Present Illness HPI narrative: Patient presents with body aches, headache congestion and sore throat began yesterday. Patient describes symptoms as moderate and without exacerbating or alleviating factors. Related Data Previous Rx's Medication Instructions Recorded ibuprofen 800 mg tablet 800 mg PO Q8H #90 tabs 10/14/21 phentermine 37.5 mg tablet 37.5 mg PO DAILY #30 tabs 10/14/21 (Adipex-P) Allergies Allergy/AdvReac Type Severity Reaction Status Date / Time Sulfa (Sulfonamide Allergy Mild Verified 10/14/21 08:49 Antibiotics) [SULFA (SULFONAMIDE ANTIBIOTICS)] [facility] Medical History Amenorrhea BMI 40.0-44.9, adult Chronic neck and back pain Dyshidrotic eczema Exposure to STD Heart murmur Hemorrhoid Hypothyroidism (~01/16/18) Ingrown toenail Insomnia Vitamin D deficiency (~01/16/18) Weight gain Social History Smoking Status: Never smoker alcohol intake: never substance use type: denies use current occupational status: other Travel in the last 8 weeks: None household members: other housing: other ROS Obtained: Yes All systems reviewed & no additional complaints except as documented Physical Exam General General appearance: alert and in no apparent distress Head Head exam: atraumatic, normocephalic and normal inspection Eye Eye exam: Present normal appearance, PERRL and EOMI ENT ENT exam: Present other (Mild pharyngeal erythema) Neck Neck exam: Present normal inspection, full ROM and trachea midline; Absent meningismus or lymphadenopathy Chest Chest inspection: Present normal inspection and symmetric chest wall rise; Absent tenderness Respiratory Respiratory exam: Present normal lung sounds bilaterally; Absent respiratory distress Cardiovascular Cardiovascular exam: Present regular rate and normal rhythm; Absent JVD Abdominal Exam Abdominal exam: Present soft and normal bowel sounds; Absent distention, tenderness or guarding Extremities Exam Extremities exam: Present normal inspection, full ROM and normal capillary refill; Absent calf tenderness Back Exam Back exam: Present normal inspection; Absent tenderness Neurological Exam Neurological exam: Present alert and oriented X3 Psychiatric Psychiatric exam: Present normal affect and normal mood Skin Skin exam: Present warm, dry, intact and normal color Lymphatic Lymphatic Findings: no adenopathy Medical Decision Making Medical Records Medical records reviewed: Yes I reviewed the patient's medical records. Luis Inquiry Pt receiving controlled substance: No Vital Signs: 08/23/22 13:01 Temperature 98.3 F Temperature Source Oral Pulse Rate [Right] 81 Respiratory Rate 16 Blood Pressure [Right Arm] 134/84 Blood Pressure Mean [Right Arm] 100 Blood Pressure Source [Right Arm] Automatic Cuff Blood Pressure Position [Right Arm] Sitting 02 Sat by Pulse Oximetry 98 Oxygen Delivery Method Room Air Orders (Tests/Meds): ORDERS Category Date Time Status CXR --portable [XR chest portable] Stat Exams 11
[2022-08-23 15:11] LABS: Influenza A, PCR Not Detected (NotDetected); Influenza B, PCR Not Detected (NotDetected)
[2022-08-23 15:49] LABS: Coronavirus 19, PCR Detected (NotDetected)
[2022-08-23 15:50] VITALS: BP 132/80; PULSE 80; RESP 17; TEMP 36.9; O2SAT 98
== END 2022-08-23 15:53 | disposition home or self-care (01) ==
PROVIDERS: Emergency Provider Emergency Medicine; PCP Physician Assistant
DX: J06.9 Acute upper respiratory infection, unspecified (principal); Z88.2 Allergy status to sulfonamides; E03.9 Hypothyroidism, unspecified
CPT/HCPCS: 71045; 96372; 99283; C9803; U0003; U0005

== ENCOUNTER → 2022-11-04 11:30 | Outpatient (CLI) | payer BC, SELFPAY ==
[2022-11-04 14:28] LABS: Basophils # 0.1 K/mm3 (0-0.2); Basophils % 0.7 % (0.1-2.0); Eosinophils # 0.3 K/mm3 (0.0-0.4); Eosinophils % 2.9 % (0.1-12.0); Hematocrit 40.8 % (37.0-47.0); Hemoglobin 13.6 g/dL (12.2-16.2); Lymphocytes # 1.7 K/mm3 (0.7-4.5); Lymphocytes % 18.4 % (10-50); Mean Corpuscular HGB Conc 33.3 g/dL (31.8-35.4); Mean Corpuscular Hemoglobin 25.9 pg (27.0-31.2); Mean Corpuscular Volume 77.7 fl (81-99); Mean Platelet Volume 8.2 fl (7.4-10.4); Monocytes # 0.9 K/mm3 (0.1-1.0); Monocytes % 9.2 % (1.7-9.3); Neutrophils # 6.5 K/mm3 (1.8-7.8); Neutrophils % 68.8 % (37.0-80.0); Platelet Count 437 K/mm3 (142-424); Red Blood Count 5.25 M/mm3 (4.20-5.40); Red Cell Distribution Width 15.3 % (11.5-17.5); White Blood Count 9.5 K/mm3 (4.8-10.8)
[2022-11-04 14:36] LABS: Alanine Aminotransferase 38 U/L (12-78); Albumin/Globulin Ratio 1.4 (1.1-1.8); Alkaline Phosphatase 137 U/L (38-126); Aspartate Amino Transferase 30 U/L (14-36); Bilirubin,Total 0.3 mg/dl (0.2-1.3); Blood Urea Nitrogen 12 mg/dl (7-17); Calcium 9.1 mg/dl (8.4-10.2); Carbon Dioxide 25 mmol/L (22.0-30.0); Chloride 106 mmol/L (98-107); Chol/HDL Ratio 3.6 (1-3.5); Cholesterol 147 mg/dl (140-200); Estimated Glomerular Filt Rate 114 ml/min (>60); GFR (African American) 138 ML/MIN (>60); Globulin 2.8 g/dL (1.3-3.2); Glucose 67 mg/dl (74-100); HDL Cholesterol 41 mg/dl (40-60); Sodium 139 mmol/L (136-145); Total Protein,Serum 6.8 g/dl (6.3-8.2); Triglycerides 237 mg/dl (30-150); VLDL Cholesterol 47 mg/dL (0-40)
[2022-11-04 14:52] LABS: Direct LDL Cholesterol 77.74 mg/dL (100-129)
[2022-11-04 15:21] LABS: Thyroid Stimulating Hormone 1.56 uIU/mL (0.465-4.68)
[2022-11-04 16:44] LABS: Hemoglobin A1C 5.9 % (4.0-6.0)
== END ==
LOC: LAB.DROPOF 14:29
PROVIDERS: PCP Nurse Practitioner Family; Visit Provider Nurse Practitioner Family
DX: R53.83 Other fatigue (principal); I10 Essential (primary) hypertension; N39.0 Urinary tract infection, site not specified
CPT/HCPCS: 80053; 80061; 83036; 84443; 85025; 87086

== ENCOUNTER → 2022-11-23 07:52 | Outpatient (CLI) | payer BC, SELFPAY ==
--- NOTE | 2022-11-23 07:53 | CA_ITS ---
FINAL REPORT CLINICAL HISTORY: HTN FINDINGS: DOPPLER RENAL VESSELS The right kidney measures 12.0 cm. There is no mass or hydronephrosis. Intrarenal resistive indices on the right are 0.37 -0.61, normal . Right main renal artery systolic velocity: 250 cm/sec. Aortic-right renal artery flow velocity ratio: 1.7 The left kidney measures 12.6 cm. There is no mass or hydronephrosis. Intrarenal resistive indices on the left are 0.48-0.60, normal . Left main renal artery systolic velocity: 280 cm/sec. Aortic-left renal artery flow velocity ratio: 1.9 CONCLUSION: Less than 60% stenosis of the bilateral renal arteries. CTA or gadolinium-enhanced MR may be considered as a more sensitive exam. Alternatively noncontrast MRI may be considered for assessing main renal arteries for stenosis as a more sensitive exam if the patient has renal insufficiency. Reviewed, Interpreted and Dictated by Erin Edmonds MD Transcribed by Aruna Corrales Authenticated and [facility]
== END ==
LOC: RT 07:53
PROVIDERS: PCP Nurse Practitioner Family; Visit Provider Nurse Practitioner Family
DX: I10 Essential (primary) hypertension (principal)
CPT/HCPCS: 93976

== ENCOUNTER → 2023-01-04 08:33 | Outpatient (CLI) | payer BC, SELFPAY | LOC: RT 08:34 | PROVIDERS: PCP Nurse Practitioner Family; Visit Provider Nurse Practitioner | DX: R06.00 Dyspnea, unspecified (principal); R07.89 Other chest pain; I10 Essential (primary) hypertension; R60.9 Edema, unspecified | CPT/HCPCS: 93306 ==

== ENCOUNTER → 2023-02-09 14:53 | Outpatient (CLI) | payer BC, SELFPAY | PROVIDERS: PCP Physician Assistant; Visit Provider Physician Assistant | DX: R51.9 Headache, unspecified (principal); I10 Essential (primary) hypertension; G47.30 Sleep apnea, unspecified | CPT/HCPCS: G0399 ==

== ENCOUNTER → 2023-03-22 11:29 | Outpatient (CLI) | payer BC, SELFPAY ==
[2023-03-22 12:10] LABS: Basophils % 0.5 % (0.1-2.0); Eosinophils # 0.2 K/mm3 (0.0-0.4); Eosinophils % 2.4 % (0.1-12.0); Hematocrit 40.3 % (37.0-47.0); Hemoglobin 12.9 g/dL (12.2-16.2); Lymphocytes # 1.4 K/mm3 (0.7-4.5); Lymphocytes % 19.6 % (10-50); Mean Corpuscular HGB Conc 32.1 g/dL (31.8-35.4); Mean Corpuscular Hemoglobin 25.5 pg (27.0-31.2); Mean Corpuscular Volume 79.5 fl (81-99); Mean Platelet Volume 7.2 fl (7.4-10.4); Monocytes # 0.5 K/mm3 (0.1-1.0); Monocytes % 6.5 % (1.7-9.3); Neutrophils # 4.9 K/mm3 (1.8-7.8); Neutrophils % 71.1 % (37.0-80.0); Platelet Count 357 K/mm3 (142-424); Red Blood Count 5.07 M/mm3 (4.20-5.40); White Blood Count 6.9 K/mm3 (4.8-10.8)
[2023-03-22 13:49] LABS: Vitamin B12 440 pg/mL (239-931)
[2023-03-23 16:45] LABS: Anti-Centromere B Antibodies <0.2 AI (0.0-0.9); Anti-DNA (DS) Ab Qn <1 IU/mL (0-9); Anti-Jo-1 <0.2 AI (0.0-0.9); Antiscleroderma-70 Antibodies <0.2 AI (0.0-0.9); RNP Antibodies <0.2 AI (0.0-0.9); Sjogren's Anti-SS-A 0.3 AI (0.0-0.9); Sjogren's Anti-SS-B <0.2 AI (0.0-0.9)
[2023-04-02 20:08] LABS: 1,25 Dihydroxy Vitamin D 76 pg/mL (.); 1,25-Dihydroxy, Vitamin D-2 <10 pg/mL (.); 1,25-Dihydroxy, Vitamin D-3 72 pg/mL (.)
[2023-04-14 00:07] LABS: Anti-Centromere B Abs Charge YES; Anti-DNA (DS) Ab Charge YES; Anti-Jo-1 Charge YES; Antichromatin Abs Charge YES; Antinuclear Antibodies (ANA) Positive; Antiscleroderma-70 Abs Charge YES; RNP Antibodies Charge YES; Sjogren's Anti-SS-A Ab Charge YES; Sjogren's Anti-SS-B Ab Charge YES; Smith Antibodies Charge YES
== END ==
LOC: LAB 11:30
PROVIDERS: PCP Physician Assistant; Visit Provider Nurse Practitioner Family
DX: G43.009 Migraine without aura, not intractable, without status migrainosus (principal); D75.839 Thrombocytosis, unspecified; E16.2 Hypoglycemia, unspecified; F39 Unspecified mood [affective] disorder; G89.29 Other chronic pain; I10 Essential (primary) hypertension; R40.0 Somnolence; Z86.39 Personal history of other endocrine, nutritional and metabolic disease; E66.01 Morbid (severe) obesity due to excess calories; Z68.41 Body mass index [BMI] 40.0-44.9, adult
CPT/HCPCS: 82607; 82652; 82746; 85025; 86038; 86225; 86235

== ENCOUNTER → 2023-03-22 15:59 | Outpatient (CLI) | payer BC, SELFPAY ==
--- NOTE | 2023-03-22 16:00 | MR_ITS ---
PROCEDURE INFORMATION: Exam: MR Head Without Contrast Exam date and time: 03/22/2023 3:59 PM Age: 32 years old Clinical indication: Pain; Headache; Additional info: Headaches. Family history brain cancer and aneurysm. Dizziness. TECHNIQUE: Imaging protocol: Magnetic resonance imaging of the head without contrast. COMPARISON: No relevant prior studies available. FINDINGS: Brain: No acute infarct. No hemorrhage. Unremarkable white matter for age. No edema. Cerebral ventricles: Normal. No ventriculomegaly. Bones/joints: Unremarkable. Paranasal sinuses: Normal as visualized. No acute sinusitis. Mastoid air cells: Normal as visualized. No mastoid effusion. Orbital cavities: Unremarkable. Soft tissues: Unremarkable. IMPRESSION: Normal brain MRI.
== END ==
LOC: RAD 15:59
PROVIDERS: PCP Nurse Practitioner Family; Visit Provider Nurse Practitioner Family
DX: R51.9 Headache, unspecified (principal)
CPT/HCPCS: 70551

== ENCOUNTER 2023-04-22 13:47 | Emergency (ER) | payer BC, SELFPAY ==
[2023-04-22 13:47] VITALS: BP 143/87; PULSE 81; RESP 18; TEMP 36.9; O2SAT 99; BMI 43.5
--- NOTE | 2023-04-22 14:24 | EXP.UTC ---
Discharge Plan Disposition Patient Disposition: Home, Self-Care Condition: Good Prescriptions Prescriptions: No Action Ubrelvy 100 mg tablet 100 mg PO ONCE PRN (Reason: chronic migraine) Qty: 10 5RF Rx Instructions: Take 1 tablet in onset of headache. May repeat 1 tablet if symptoms persist after 2 hours and no intolerance. Max dose 2 tablets in 24 hours or 4 tablets/week. amitriptyline 25 mg tablet 25 mg PO HS Qty: 30 2RF ketoconazole 2 % shampoo 1 applic topical .every other day Qty: 120 0RF nebivolol [Bystolic] 10 mg tablet 10 mg PO DAILY Qty: 30 2RF Referrals Follow up/Referrals: Meme Mckeon PA [Primary Care Provider] - See instructions Clinical Impressions Clinical Impression: Headache Stand Alone Forms Stand Alone Forms: Work/School Release Instructions Patient Instructions: DI for Headache Discharge ED Provider: Meme Mckeon [facility] [place] HPI General Stated complaint: elevated bp, h/a, lightheaded Mode of Arrival: Ambulatory Source of Information: Patient Limitations: No Limitations Time Seen by Provider: 04/22/23 14:25 Description of Symptoms (Recalled from Triage Doc. by RN): Patient reports her blood pressure being up this morning and every since she has been unable to get rid of her headache. HEENT Symptoms (Recalled from RN notes): Yes Resp Symptoms (Recalled from RN notes): No Skin Symptoms (Recalled from RN notes): No MS Symptoms (Recalled from RN notes): No Functional Status (Recalled from RN notes): wnl History of Present Illness Provider Complaint: Did not sleep well last night, blood pressure elevated this am, and has a headache. Has taken blood pressure medicine as directed. Took Ubrelvy but it did not help this time. She is dizzy, nauseous due to the headache. Onset (ago): day(s) (1) Location: head Associated symptoms: headaches Treatments prior to arrival: none Related Data Previous Rx's Medication Instructions Recorded nebivolol 10 mg tablet (Bystolic) 10 mg PO DAILY #30 tabs 02/17/23 ubrogepant 100 mg tablet (Ubrelvy) 100 mg PO ONCE PRN chronic 03/14/23 migraine #10 tabs amitriptyline 25 mg tablet 25 mg PO HS #30 tabs 03/23/23 ketoconazole 2 % shampoo 1 applic topical .every other day 03/23/23 #120 mL Allergies Allergy/AdvReac Type Severity Reaction Status Date / Time Sulfa (Sulfonamide Allergy Mild Verified 03/23/23 15:53 Antibiotics) [SULFA (SULFONAMIDE ANTIBIOTICS)] Worker's Comp Is this a Worker's Comp case?: No [facility] Disclaimer: The information contained in this section may have been updated after the patient was seen, as this information can be updated by other users. Medical History Amenorrhea BMI 36.0-36.9,adult BMI 40.0-44.9, adult Chest pain Chronic neck and back pain Dyshidrotic eczema Exposure to STD Heart murmur Hemorrhoid Hypothyroidism (~01/16/18) Ingrown toenail Refer to podiatry. Insomnia RF Trazodone Vitamin D deficiency (~01/16/18) Weight gain Surgical History Hx of tonsillectomy Family History Other Cancer Diabetes Heart attack Hypertension Social History Smoking Status: Never smoker alcohol intake: never substance use type: denies use current occupational status: employed Travel in the last 8 weeks: None household members: spouse and other housing: house marital status: ROS Obtained: Yes All systems reviewed & no additional complaints except as documented Constitutional Constitutional: Reports headache(s) ENT Ears, Nose, Mouth, and Throat: Reports headache(s) Neurologic Neurologic: Reports headache(s) Physical Exam General General appearance: alert and in no apparent distress Head Head exam: atraumatic, normocep
[2023-04-22 15:08] VITALS: BP 143/87; PULSE 81; RESP 18; TEMP 36.9; O2SAT 99
== END 2023-04-22 15:09 | disposition home or self-care (01) ==
PROVIDERS: Emergency Provider Physician Assistant; PCP Physician Assistant
DX: G44.89 Other headache syndrome (principal); R42 Dizziness and giddiness; I10 Essential (primary) hypertension; E03.9 Hypothyroidism, unspecified; R01.1 Cardiac murmur, unspecified; G47.00 Insomnia, unspecified; E55.9 Vitamin D deficiency, unspecified
CPT/HCPCS: 96372; 99212; 99214; G0463

== ENCOUNTER 2023-05-21 19:14 | Emergency (ER) | payer BC, SELFPAY ==
[2023-05-21 19:15] VITALS: BP 124/79; PULSE 79; RESP 18; TEMP 36.8; O2SAT 96; BMI 43.5
--- NOTE | 2023-05-21 19:18 | EXP.UTC ---
Discharge Plan Disposition Patient Disposition: Home, Self-Care Condition: Good Prescriptions Prescriptions: No Action Ubrelvy 100 mg tablet 100 mg PO ONCE PRN (Reason: chronic migraine) Qty: 10 5RF Rx Instructions: Take 1 tablet in onset of headache. May repeat 1 tablet if symptoms persist after 2 hours and no intolerance. Max dose 2 tablets in 24 hours or 4 tablets/week. amitriptyline 25 mg tablet 25 mg PO HS Qty: 30 2RF ketoconazole 2 % shampoo 1 applic topical .every other day Qty: 120 0RF amoxicillin 500 mg tablet 500 mg PO BID 10 Days Qty: 20 0RF iaklmkec-jsehwiaqc-EG 3.5-10,000-1 mg/mL-unit/mL-% drops,suspension 4 drp otic (ear) TID 10 Days Qty: 10 0RF uqsboudguw-jfopljnuog-dlf-cod [Fioricet with Codeine] [id number] mg capsule 1 cap PO Q4H PRN (Reason: pain) Qty: 20 0RF Referrals Follow up/Referrals: Jana Blue MD [Primary Care Provider] - See instructions Activity Restrictions/Add. Instructions Additional Instructions/Restrictions: COVID19 test pending Clinical Impressions Clinical Impression: Close exposure to 2019 novel coronavirus Instructions Patient Instructions: DI for COVID-19 (Suspected or Confirmed ) Discharge ED Provider: Meme Mckeon [facility] [place] General Stated complaint: covid exposure Time Seen by Provider: 05/21/23 19:53 History of Present Illness Provider Complaint: Would like COVID test. Currently asymptomatic. Boyfriend has symptoms. Relieving factors: none Exacerbating factors: none Associated symptoms: denies other symptoms Treatments prior to arrival: none Related Data Previous Rx's Medication Instructions Recorded ubrogepant 100 mg tablet (Ubrelvy) 100 mg PO ONCE PRN chronic 03/14/23 migraine #10 tabs amitriptyline 25 mg tablet 25 mg PO HS #30 tabs 03/23/23 ketoconazole 2 % shampoo 1 applic topical .every other day 03/23/23 #120 mL butalbital 50 mg-acetaminophen 300 1 cap PO Q4H PRN pain #20 caps 04/28/23 mg-caffeine 40 mg-codeine 30 mg cap (Fioricet with Codeine) amoxicillin 500 mg tablet 500 mg PO BID 10 days #20 tabs 05/04/23 prgmjdry-ubtnhtewg-qiiffpady 3.5 4 drp otic (ear) TID 10 days #10 mL 05/04/23 mg-10,000 unit/mL-1 % ear drops,susp Allergies Allergy/AdvReac Type Severity Reaction Status Date / Time Sulfa (Sulfonamide Allergy Mild Verified 05/04/23 10:30 Antibiotics) [SULFA (SULFONAMIDE ANTIBIOTICS)] [facility] Disclaimer: The information contained in this section may have been updated after the patient was seen, as this information can be updated by other users. Medical History Amenorrhea BMI 36.0-36.9,adult BMI 40.0-44.9, adult Chest pain Chronic neck and back pain Dyshidrotic eczema Exposure to STD Heart murmur Hemorrhoid Hypothyroidism (~01/16/18) Ingrown toenail Refer to podiatry. Insomnia RF Trazodone Vitamin D deficiency (~01/16/18) Weight gain Surgical History Hx of tonsillectomy Family History Other Cancer Diabetes Heart attack Hypertension Social History Smoking Status: Never smoker alcohol intake: never substance use type: denies use current occupational status: employed Travel in the last 8 weeks: None household members: spouse and other housing: house marital status: ROS Obtained: Yes All systems reviewed & no additional complaints except as documented Physical Exam General General appearance: alert and in no apparent distress Head Head exam: atraumatic, normocephalic and normal inspection Eye Eye exam: Present normal appearance, PERRL and EOMI ENT ENT exam: Present normal exam, normal oropharynx, mucous membranes moist, TM's normal bilaterally and normal external ear exam Ne
[2023-05-21 20:00] VITALS: BP 124/79; PULSE 79; RESP 18; TEMP 36.8; O2SAT 96
== END 2023-05-21 20:03 | disposition home or self-care (01) ==
PROVIDERS: Emergency Provider Physician Assistant; PCP Family Medicine
DX: Z20.822 Contact with and (suspected) exposure to COVID-19 (principal)
CPT/HCPCS: 99212; G0463

== ENCOUNTER → 2023-05-25 15:41 | Outpatient (CLI) | payer BC, SELFPAY ==
[2023-05-25 14:57] LABS: Adenovirus,PCR Not Detected (NotDetected); Bordetella Pertussis Not Detected (NotDetected); Chlamydophila Pneumoniae, PCR Not Detected (NotDetected); Coronavirus 19, PCR Not Detected (NotDetected); Coronavirus 229E Not Detected (NotDetected); Coronavirus NL63 Not Detected (NotDetected); Coronavirus OC43 Not Detected (NotDetected); Coronovirus HKU1,PCR Not Detected (NotDetected); Human Metapneumovirus Not Detected (NotDetected); Influenza A, PCR Not Detected (NotDetected); Influenza AH1, 2009 Not Detected (NotDetected); Influenza AH1, PCR Not Detected (NotDetected); Influenza AH3,PCR Not Detected (NotDetected); Influenza B, PCR Not Detected (NotDetected); Mycoplasma Pneumoniae, PCR Not Detected (NotDetected); Parainfluenza 1, PCR Not Detected (NotDetected); Parainfluenza 2, PCR Not Detected (NotDetected); Parainfluenza 3, PCR Not Detected (NotDetected); Parainfluenza 4, PCR Not Detected (NotDetected); Respiratory Syncytial Virus Not Detected (NotDetected); Rhinovirus/Enterovirus Not Detected (NotDetected)
== END ==
LOC: LAB.DROPOF 15:41
PROVIDERS: PCP Internal Medicine; Visit Provider Internal Medicine
DX: R51.9 Headache, unspecified (principal); R68.83 Chills (without fever)
CPT/HCPCS: 87581; 87632; 87798

== ENCOUNTER 2023-05-28 10:34 | Emergency (ER) | payer BC, SELFPAY ==
[2023-05-28 10:36] VITALS: BP 139/100; PULSE 83; RESP 18; TEMP 36.9; O2SAT 97; BMI 43.5
[2023-05-28 10:39] VITALS: BP 139/100; PULSE 87; O2SAT 98
--- NOTE | 2023-05-28 10:42 | PC.NURSE ---
Dr. Gudino at [facility] for pt eval
--- NOTE | 2023-05-28 10:46 | HMH.EDGENADL ---
Discharge Plan Disposition Patient Disposition: Home, Self-Care Condition: Fair Prescriptions Prescriptions: New Paxlovid 300 mg (150 mg x 2)-100 mg tablets,dose pack See Rx Instructions .ROUTE .COMPLEX Qty: 30 0RF Rx Instructions: take TWO 150 mg tablets of nirmatrelvir with ONE 100 mg tablet of ritonavir twice daily for 5 days ifnvulgnvalnmtg-xipwqlxqc-HC [Bromfed DM] 2-30-10 mg/5 mL syrup 5 ml PO Q6H PRN (Reason: cold symptoms) Qty: 118 0RF No Action Ubrelvy 100 mg tablet 100 mg PO ONCE PRN (Reason: chronic migraine) Qty: 10 5RF Rx Instructions: Take 1 tablet in onset of headache. May repeat 1 tablet if symptoms persist after 2 hours and no intolerance. Max dose 2 tablets in 24 hours or 4 tablets/week. metoprolol succinate 25 mg tablet extended release 24 hr 25 mg PO DAILY Patient Comments: TAKE 1 TABLET BY MOUTH ONCE DAILY Referrals Follow up/Referrals: Antony Cramer DO [Primary Care Provider] - See instructions Activity Restrictions/Add. Instructions Additional Instructions/Restrictions: At this time it was felt you are safe to be discharged home. If new or worsening symptoms please do not hesitate to return the emergency department. If symptoms persist please follow-up with your family doctor as you are able. Please take your medications as prescribed. Clinical Impressions Clinical Impression: COVID-19 Discharge ED Provider: Konstantin Gudino General Adult HPI General Chief complaint: Upper Respiratory Infection Stated complaint: runny nose, weakness, congestion, sore throat Time Seen by Provider: 05/28/23 10:39 Mode of Arrival: Ambulatory Source of Information: Patient Limitations: No Limitations Description of Symptoms (Recalled from ER Triage Doc. by RN): c/o runny nose, sneezing, cough and sore throat for a few days. States everyone in her house has had covid and she thinks it has caught up with her. History of Present Illness HPI narrative: Patient is a 32-year-old female with no pertinent past medical history presents emergency department for evaluation of upper respiratory symptoms. History is obtained by patient at bedside. Patient has had cough sneezing runny nose over the last few days with associated sore throat. She does feel lightheaded when rising from a seated position, adequate p.o. intake and urine output. Multiple sick contacts with COVID. Symptoms refractory to Tylenol and ibuprofen. Denies chest pain, productive cough, other acute complaints at this time. Related Data Home Medications Medication Instructions Recorded Confirmed metoprolol succinate 25 mg 25 mg PO DAILY 05/25/23 05/25/23 tablet,extended release 24 hr Previous Rx's Medication Instructions Recorded ubrogepant 100 mg tablet (Ubrelvy) 100 mg PO ONCE PRN chronic 03/14/23 migraine #10 tabs qmwxgttfrmumakz-hheoewagndiikhg-SJ 5 ml PO Q6H PRN cold symptoms #118 05/28/23 2 mg-30 mg-10 mg/5 mL oral syrup mL (Bromfed DM) nirmatrelvir 300 mg (150 mg See Rx Instructions PO .COMPLEX 05/28/23 x2)-ritonavir 100 mg tablet,dose #30 tabs pack (Paxlovid) Allergies Allergy/AdvReac Type Severity Reaction Status Date / Time Sulfa (Sulfonamide Allergy Mild Verified 05/25/23 13:45 Antibiotics) [SULFA (SULFONAMIDE ANTIBIOTICS)] [facility] Disclaimer: The information contained in this section may have been updated after the patient was seen, as this information can be updated by other users. Medical History Amenorrhea BMI 36.0-36.9,adult BMI 40.0-44.9, adult Chest pain Chronic neck and back pain Dyshidrotic eczema Exposure to STD Heart murmur Hemorrhoid Hypothyroidism (~01/16/18) Ingrown toenail Refer to podiatry. Insomnia RF Trazodone Vitamin D deficiency (~01/16/18) Weight gain Surgical History Hx of tonsillectomy Fa
[2023-05-28 10:48] LABS: Influenza A, PCR Not Detected (NotDetected); Influenza B, PCR Not Detected (NotDetected)
--- NOTE | 2023-05-28 10:51 | ECG_ITS ---
APPROVED REPORT Exam: Resting ECG HR:79 bpm ECG Measurements Heart Rate 79 AXES OK 190 P 42 QRSd 89 QRS 58 QT 353 T 55 QTc 388 Conclusion SINUS RHYTHM LOW QRS VOLTAGE IN PRECORDIAL LEADS [QRS DEFLECTION < 1.0 mV IN CHEST LEADS] BORDERLINE ECG UNCONFIRMED REPORT Electronically signed by : Sal Correa MD 05/30/2023 15:53:41
[2023-05-28 11:02] LABS: Strep Scrn Group A (Rapid) Negative (Negative)
[2023-05-28 11:13] VITALS: BP 106/84; PULSE 72; O2SAT 95
[2023-05-28 11:30] VITALS: BP 112/79; PULSE 74; O2SAT 98
--- NOTE | 2023-05-28 11:40 | PC.NURSE ---
pt received a warm blanket
[2023-05-28 11:52] LABS: Coronavirus 19, PCR Detected (NotDetected)
[2023-05-28 12:03] VITALS: BP 131/82; PULSE 75; RESP 18; TEMP 36.8; O2SAT 97
== END 2023-05-28 12:03 | disposition home or self-care (01) ==
PROVIDERS: Emergency Provider Emergency Medicine; PCP Internal Medicine
DX: U07.1 COVID-19 (principal); R53.1 Weakness; J02.9 Acute pharyngitis, unspecified; R01.1 Cardiac murmur, unspecified; E03.9 Hypothyroidism, unspecified
CPT/HCPCS: 87430; 87636; 93005; 99285

== ENCOUNTER → 2023-07-26 13:19 | Outpatient (CLI) | payer BC, SELFPAY ==
[2023-07-26 11:16] LABS: Adenovirus,PCR Not Detected (NotDetected); Coronavirus 19, PCR Not Detected (NotDetected); Coronavirus 229E Not Detected (NotDetected); Coronavirus NL63 Not Detected (NotDetected); Coronavirus OC43 Not Detected (NotDetected); Coronovirus HKU1,PCR Not Detected (NotDetected); Human Metapneumovirus Not Detected (NotDetected); Influenza A, PCR Not Detected (NotDetected); Influenza AH1, 2009 Not Detected (NotDetected); Influenza AH1, PCR Not Detected (NotDetected); Influenza AH3,PCR Not Detected (NotDetected); Influenza B, PCR Not Detected (NotDetected); Parainfluenza 1, PCR Not Detected (NotDetected); Parainfluenza 2, PCR Not Detected (NotDetected); Parainfluenza 3, PCR Not Detected (NotDetected); Parainfluenza 4, PCR Not Detected (NotDetected); Respiratory Syncytial Virus Not Detected (NotDetected)
[2023-07-26 15:21] LABS: Rhinovirus/Enterovirus Detected (NotDetected)
== END ==
LOC: LAB.DROPOF 07-28 13:20
PROVIDERS: PCP Internal Medicine; Visit Provider Internal Medicine
DX: J06.9 Acute upper respiratory infection, unspecified (principal); R09.89 Other specified symptoms and signs involving the circulatory and respiratory systems; R05.8 Other specified cough; J02.9 Acute pharyngitis, unspecified; R06.02 Shortness of breath; B34.1 Enterovirus infection, unspecified
CPT/HCPCS: 87632; 87635

== ENCOUNTER → 2023-07-26 14:34 | Outpatient (CLI) | payer BC, SELFPAY | PROVIDERS: PCP Obstetrics & Gynecology; Visit Provider Obstetrics & Gynecology | DX: N97.9 Female infertility, unspecified (principal) ==

== ENCOUNTER → 2023-08-05 10:34 | Outpatient (CLI) | payer BC, SELFPAY ==
--- NOTE | 2023-08-05 10:34 | FL_ITS ---
FINAL REPORT CLINICAL HISTORY: desire for and pcos .32 fluoro time 822.44 DAP FINDINGS: FLUOROSCOPY LESS THAN 1 HOUR HISTORY: Fluoroscopy guidance. FINDINGS: Fluoroscopic guidance was provided for hysterosalpingography. Six spot films were obtained. A total of 0.32 minutes of fluoroscopy time were used. DAP: 822.44 mGy IMPRESSION: As above. Reviewed, Interpreted and Dictated by Pancho Duran III, MD Transcribed by Candice Roth Authenticated and [facility]
--- NOTE | 2023-08-05 11:35 | P.PCN_ITS ---
[facility] Procedure Note Date: 08/05/23 Time: 11:15 Procedure Note:: Findings: bilateral patent fallopian tubes without hydrosalpinx. No endometrial filling defects noted. Patient was positioned in the dorsal lithotomy position. Speculum was inserted. Cervix and vagina was cleansed with Hibiclens. Tenaculum was placed on anterior lip of the cervix. 10 cc of contrast was drawn up into a syringe and attached to the Esperanza HSG cannula. Contrast was flushed through cannula to remove air bubbles and ensure patency. Cannula was then inserted into the cervix. Fluoroscopy was initiated with 10 cc of contrast injected into the endometrial cavity. Fluoroscopy demonstrated contrast immediately flowing from endometrial cavity. An additional 3mL of contrast was used patent bilateral fallopian tubes. Cavity appeared normal shape. Cannula was removed from the cervix. Tenaculum was removed from the cervix. Hemostasis was noted. Speculum removed from the vagina. Patient tolerated the procedure well.
== END ==
LOC: RAD 10:34
PROVIDERS: PCP Internal Medicine; Visit Provider Obstetrics & Gynecology
DX: E28.2 Polycystic ovarian syndrome (principal); Z31.9 Encounter for procreative management, unspecified
CPT/HCPCS: 74740; Q9967

== ENCOUNTER 2023-09-27 14:35 | Outpatient (POV) | payer BC, SELFPAY | END 2023-09-27 23:59 | disposition home or self-care (01) | LOC: SC 14:35 | PROVIDERS: PCP Internal Medicine; Visit Provider Dermatology | DX: Z00.00 Encounter for general adult medical examination without abnormal findings (principal) ==

== ENCOUNTER 2023-11-02 13:57 | Outpatient (CLI) | payer BC, SELFPAY ==
[2023-11-02 14:33] LABS: Basophils % 0.6 % (0.1-2.0); Eosinophils # 0.2 K/mm3 (0.0-0.4); Eosinophils % 2.9 % (0.1-12.0); Hematocrit 38.7 % (37.0-47.0); Lymphocytes # 1.7 K/mm3 (0.7-4.5); Lymphocytes % 21.8 % (10-50); Mean Corpuscular HGB Conc 33.7 g/dL (31.8-35.4); Mean Corpuscular Hemoglobin 26.8 pg (27.0-31.2); Mean Corpuscular Volume 79.6 fl (81-99); Mean Platelet Volume 7.6 fl (7.4-10.4); Monocytes # 0.5 K/mm3 (0.1-1.0); Monocytes % 6.5 % (1.7-9.3); Neutrophils # 5.4 K/mm3 (1.8-7.8); Neutrophils % 68.3 % (37.0-80.0); Platelet Count 329 K/mm3 (142-424); Red Blood Count 4.86 M/mm3 (4.20-5.40); Red Cell Distribution Width 14.8 % (11.5-17.5); White Blood Count 7.9 K/mm3 (4.8-10.8)
[2023-11-02 15:03] LABS: Alanine Aminotransferase 50 U/L (12-78); Albumin Level 3.9 g/dl (3.5-5.0); Albumin/Globulin Ratio 1.4 (1.1-1.8); Alkaline Phosphatase 91 U/L (38-126); Anion Gap 9.9 mEq/L (5-15); Aspartate Amino Transferase 38 U/L (14-36); Bilirubin,Total 0.4 mg/dl (0.2-1.3); Blood Urea Nitrogen 12 mg/dl (7-17); Calcium 9.2 mg/dl (8.4-10.2); Carbon Dioxide 26 mmol/L (22.0-30.0); Chloride 107 mmol/L (98-107); Estimated Glomerular Filt Rate 95 ml/min (>60); GFR (African American) 115 ML/MIN (>60); Globulin 2.7 g/dL (1.3-3.2); Glucose 112 mg/dl (74-100); Potassium 3.9 mmoL/L (3.5-5.1); Sodium 139 mmol/L (136-145); Total Protein,Serum 6.6 g/dl (6.3-8.2)
[2023-11-02 15:25] LABS: HCG,Quantitative < 2 mIU/ml (0-5.42)
== END 2023-11-02 23:59 ==
LOC: LAB 13:58
PROVIDERS: PCP Internal Medicine; Visit Provider Obstetrics & Gynecology
DX: N80.9 Endometriosis, unspecified (principal)
CPT/HCPCS: 36415; 80053; 84702; 85025

== ENCOUNTER 2023-11-09 07:10 | Day surgery (SDC) | payer BC, SELFPAY ==
[2023-11-09] VITALS (10 sets, daily range): BP systolic 104–144; BP diastolic 72–103; PULSE 79–88; RESP 10–18; TEMP 36.1–43; O2SAT 90–97; BMI 43.0
[2023-11-09] MEDS: LACTATED RINGERS 1000ML 1,000 ML 25 ML IV (07:54)
--- NOTE | 2023-11-09 08:05 | P.PNANES_ITS ---
[facility] Disclaimer: The information contained in this section may have been updated after the patient was seen, as this information can be updated by other users. Medical History (Updated 11/09/23 @ 07:45 by Angelica Henry RN) Allergies Amenorrhea Chest pain Chronic neck and back pain Dyshidrotic eczema Endometriosis Exposure to STD Heart murmur Hemorrhoid History of COVID-19 Hypertension Hypothyroidism (~01/16/18) Ingrown toenail Insomnia Migraine Vitamin D deficiency (~01/16/18) Weight gain Surgical History (Updated 11/09/23 @ 07:45 by Angelica Henry RN) Dermoid tumor Hx of dilation and curettage Hx of tonsillectomy Family History Other Cancer Diabetes Heart attack Hypertension Social History (Updated 11/09/23 @ 07:45 by Angelica Henry RN) Smoking Status: Never smoker alcohol intake: never substance use type: denies use current occupational status: employed Travel in the last 8 weeks: None household members: spouse and other housing: house marital status: [facility] Anesthesia Checklist Patient Identification Patient Identification: Arm Band and Family Structural Data Admitted From: Home Planned Operative Procedure/s: Hysteroscopy, D&C, Ablation, Bilateral Salpingectomy Consent for Planned Operative Procedure(s) Verified: Yes Verified Documents: Surgical Consent and History and Physical Additional verifications Anesthesia Reactions: No Hx Blood Transfusions: No Blood Transfusion Reaction: No Airway Assessment Mallampati Score:: Class II C-Spine Mobility Assessed: Yes TMJ Mobility Assessed: Yes Dentition: Good Dentition Neurological Assessment Level of Consciousness: Awake and Alert Anesthesia Plan Anesthesia Risk discussed: Yes Anesthesia Plan: Verified ASA Class: III Anesthesia Type: General
[2023-11-09] MEDS: BUPIVACAINE 0.5% 30ML VIAL 150 MG (09:20)
[2023-11-09] MEDS: SODIUM CHLORIDE IRRIG SOLUTION 3,000 ML 200 ML IR (09:21)
--- NOTE | 2023-11-09 10:27 | EXP.ANES.I ---
[facility] Anesthesia Record Part I Anesthesia Record I Intake, IV Amount: 1,000 Hydration: Adequate Estimated blood loss (mL): 10 Urine output (mL): 150 Blood Pressure: 140/100 SaO2: 92 Pulse Rate: 88 Airway Patency: Patent Respiratory Rate: 10 Temperature: 97.7 F Patient is:: Drowsy and Oral/Nasal airway Stable to PACU at:: 10:22
--- NOTE | 2023-11-09 10:34 | P.OP_ITS ---
Date of procedure: 11/09/23 Pre-op Diagnosis:: 1. Abnormal uterine bleeding 2. Dysmenorrhea 3. Dyspareunia 4. Heavy uterine bleeding 5. Desires sterilization 6. Suspected endometriosis Post-op Diagnosis:: 1. Abnormal uterine bleeding 2. Dysmenorrhea 3. Dyspareunia 4. Heavy uterine bleeding 5. Desires sterilization 6. Pelvic adhesions involving the colon Procedure performed:: 1. Laparoscopic bilateral salpingectomy 2. Diagnostic laparoscopy 3. Hysteroscopy, dilation, and MyoSure curettage 4. NovaSure endometrial ablation Surgeon:: Ayana Cramer DO PLANT OPERATOR/SHIFT SUPERVISOR:: Handy Alvarez Anesthesia: GETA Estimated blood loss (mL): 10 Operative findings:: 1. Bimanual examination was nonrevealing secondary to habitus. No significant appreciable vaginal wall support defects 2. Laparoscopic exam revealed normal-appearing uterus, ovaries, fallopian tubes and liver. The uterus was noted to be enlarged and boggy. There were omental adhesions to the anterior abdominal wall. There were colonic adhesions in the bilateral adnexa. The right fallopian tube fimbriated were adherent to the pelvic sidewall, ovary, and colon. 3. There were adhesions noted extending from the left colon to the left pelvic sidewall and an adhesion extending from the omentum to the anterior abdominal wall at the umbilicus 4. Hysteroscopic exam revealed diffusely proliferative endometrium. No other abnormalities, polyps, or fibroids noted Operative note:: Angelica Wyatt is a 33-year-old G0 with above preoperative diagnosis. Patient originally desired a hysterectomy however she was counseled and elected to proceed with a less invasive option that had a faster recovery period. Risk and benefits were reviewed at length. The permanent nature of sterilization was reviewed with the patient, her partner, and her mother in detail over multiple visits. It was discussed again preoperatively. The patient continues to express desire to proceed with salpingectomy and ablation. The patient was taken to the operating room where general anesthesia was obtained and noted to be adequate. SCDs were placed for thromboembolism prophylaxis and found to be working. The patient was placed in the dorsal lithotomy position using yellowfin stirrups. Timeout verified the correct patient and procedure. The patient was prepped and draped in a usual sterile fashion. An acorn uterine manipulator was placed and my top gloves were removed. 10mL of Lidocaine with epinepherine was injected infraumbilically and a scalpel was used to make a 5 mm infraumbilical incision with the assistance from a hemostat. The skin was tented and Optiview blunt trocar was introduced into the abdomen in the usual fashion. CO2 gas was connected with an initial pressure of 6 mmHg noted. Pneumoperitoneum was created to a pressure of 15 mmHg. The lapar oscopic camera was inserted and a quick survey of the abdomen revealed grossly normal anatomy. The uterus appeared to be anteverted, and enlarged. The patient was placed in Trendelenburg. 10mLs of local anesthetic was injected and a 5mm incision was then made in the right lower quadrant with careful attention to avoid the rectus muscles and vasculature and under direct laparoscopic visualization a blunt trocar was introduced into the abdominal cavity. This process was repeated on the left side. The fallopian tubes were identified on the cornu of the uterus and followed out to the ovaries. The above-noted adhesions. The LigaSure was used to take down the omental adhesions at the umbilicus for better visualization. Careful attention was given to dissect and ensure there is no bowel in this adhesion. The area was red but not actively bleeding. The pressure was dropped down to 13 and no bleeding was noted. This area was again checked at the conclusion of the case without any bleeding noted. A grasper was used to elevate the left fallopian tube. The Ligasure was used to grasp the fimbriated end of the fallopian tube, it was clamped, coagulated and transected. This process was r epeated serially working towards the uterus to allow complete removal of the fallopian tube. Careful attention was given to transected the Mesosalpinx proximal to the fallopian tube. The fallopian tube was removed from the abdominal cavity and passed off the operative field to be sent to pathology. Hemostasis was noted. Attention was then turned to the right fallopian tube and the process was repeated. It is worth noting that the fimbriated end of the right fallopian tube was adherent to the ovary, pelvic sidewall and also the bowel. It was unable to be removed and left in situ. Hemostasis was noted and the tube was removed along with the trocar and handed off the operative field to be sent to pathology. The pressure was dropped down to less than 9 in the operative sites as well as the omentum that was taken down were visualized and noted to be hemostatic. The ports were slowly removed under direct visualization. Pneumoperitoneum reduced. The 3 abdominal incisions were closed with 4-0 Monocryl in a subcuticular fashion. Dermabond was applied to each skin incision. Attention was turned to the vaginal portion of the case At the start of the case in and out Wu was used to drain the patient's bladder revealing light yellow urine, 150 mL. A weighted speculum and Javier were used to visualize the cervix. The acorn uterine manipulator was removed. Luis Eduardo uterine dilators were used to dilate the cervix to accommodate the MyoSure XL scope. Device set up, primed and zeroed. The hysterscope was inserted to the fundus. This was slightly challenging secondary to the large nature of the hysteroscope. Myosure was used to obtain an adequate endometrial sample. There were no significant polyps or fibroids noted. Total fluid deficit was less than 100mLs. MyoSure hysteroscope was removed.? With removal the cervical length was noted to be 3 cm. The uterus previously sounded to 8 cm. The Novasure device was opened, deployed, and noted to be functioning properly. The device was inserted to the fundus, set to a length of 5cm, and deployed to a width of 4cm. Cavity integrity was assessed and adequate. The ablation was started. Total ablation time was 0:43 seconds. The Novasure device was removed from the cervical os. All instruments were removed from the vagina. Hemostasis was noted at the tenaculum sites. All counts were correct, per nursing. This concluded the procedure, the pt was awakened from anesthesia and transferred to the PACU in stable condition. The pt will be given 30mg IV Toradol postoperatively for pain control. Condition: stable Disposition: same day Specimens:: Bilateral fallopian tubes Endometrial curettings Complications:: None
[2023-11-09] MEDS: OXYCODONE 5MG W/APAP 325MG TABLET 1 EACH PO (11:03)
--- NOTE | 2023-11-10 15:13 | P.PNANES_ITS ---
[facility] Anesthesia Record Part II Anesthesia Record Part II Discharge Time: 10:52 Destination: Surgical Day Care (OP Surgery) PACU nurse assessment reviewed?: Yes Patient Condition:: Good Anesthesia Complications:: None Swallowing reflex intact?: Yes Airway Patency: Patent Cyanosis?: No Blood Pressure: 142/102 SaO2: 95 Respiratory Rate: 17 Pulse Rate: 84 Temperature: 97 F Mental Status: Alert & Oriented Pain level:: 0 Nausea and/or vomitting:: None Intake, IV Amount: 0 Hydration: Adequate
[2023-11-10 15:14] VITALS: BP 142/102; PULSE 84; RESP 17; TEMP 36.1; O2SAT 95
== END 2023-11-09 11:27 | disposition home or self-care (01) ==
PROVIDERS: PCP Internal Medicine; Visit Provider Obstetrics & Gynecology
PROC: (CPT 49320; principal; 2023-11-09 09:00)
PROC: (CPT 58661; 2023-11-09 09:00)
DX: N93.9 Abnormal uterine and vaginal bleeding, unspecified (principal); N94.6 Dysmenorrhea, unspecified; N94.10 Unspecified dyspareunia; Z30.2 Encounter for sterilization; N73.6 Female pelvic peritoneal adhesions (postinfective)
CPT/HCPCS: 58661; 58563; J3490; J2405

== ENCOUNTER 2023-11-22 12:34 | Outpatient (CLI) | payer BC, SELFPAY ==
[2023-11-25 12:11] LABS: Basophils # 0.1 K/mm3 (0-0.2); Basophils % 0.7 % (0.1-2.0); Eosinophils # 0.2 K/mm3 (0.0-0.4); Eosinophils % 2.9 % (0.1-12.0); Hematocrit 41.7 % (37.0-47.0); Lymphocytes # 1.7 K/mm3 (0.7-4.5); Lymphocytes % 21.4 % (10-50); Mean Corpuscular HGB Conc 31.3 g/dL (31.8-35.4); Mean Corpuscular Hemoglobin 26.3 pg (27.0-31.2); Mean Corpuscular Volume 84.2 fl (81-99); Mean Platelet Volume 8.6 fl (7.4-10.4); Monocytes # 0.6 K/mm3 (0.1-1.0); Monocytes % 7.1 % (1.7-9.3); Neutrophils # 5.5 K/mm3 (1.8-7.8); Neutrophils % 67.9 % (37.0-80.0); Platelet Count 390 K/mm3 (142-424); Red Blood Count 4.94 M/mm3 (4.20-5.40); Red Cell Distribution Width 15.1 % (11.5-17.5)
[2023-11-25 13:20] LABS: Hemoglobin A1C 5.9 % (4.0-6.0)
[2023-11-25 13:21] LABS: Alanine Aminotransferase 59 U/L (12-78); Albumin Level 4.1 g/dl (3.5-5.0); Albumin/Globulin Ratio 1.5 (1.1-1.8); Alkaline Phosphatase 171 U/L (38-126); Anion Gap 10.4 mEq/L (5-15); Aspartate Amino Transferase 37 U/L (14-36); Bilirubin,Total 0.3 mg/dl (0.2-1.3); Blood Urea Nitrogen 10 mg/dl (7-17); Carbon Dioxide 27 mmol/L (22.0-30.0); Chloride 104 mmol/L (98-107); Chol/HDL Ratio 3.7 (1-3.5); Cholesterol 146 mg/dl (140-200); Estimated Glomerular Filt Rate 140 ml/min (>60); GFR (African American) 170 ML/MIN (>60); Globulin 2.8 g/dL (1.3-3.2); Glucose 95 mg/dl (74-100); HDL Cholesterol 39 mg/dl (40-60); Potassium 4.4 mmoL/L (3.5-5.1); Sodium 137 mmol/L (136-145); Total Protein,Serum 6.9 g/dl (6.3-8.2); Triglycerides 126 mg/dl (30-150); VLDL Cholesterol 25 mg/dL (0-40)
[2023-11-25 13:32] LABS: Direct LDL Cholesterol 74.19 mg/dL (100-129)
[2023-11-25 13:38] LABS: 25-OH Vitamin D, Total 29.7 ng/mL (30-100)
[2023-11-25 13:53] LABS: Thyroid Stimulating Hormone 2.26 uIU/mL (0.465-4.68)
[2023-11-25 14:00] LABS: Free T4 (Free Thyroxine) 0.74 ng/dl (0.78-2.19)
== END 2023-11-22 23:59 ==
LOC: LAB.DROPOF 12-26 12:35
PROVIDERS: PCP Internal Medicine; Visit Provider Internal Medicine
DX: I10 Essential (primary) hypertension (principal); E03.9 Hypothyroidism, unspecified; E55.9 Vitamin D deficiency, unspecified; R74.01 Elevation of levels of liver transaminase levels; R94.6 Abnormal results of thyroid function studies; E66.9 Obesity, unspecified; Z68.41 Body mass index [BMI] 40.0-44.9, adult; Z79.899 Other long term (current) drug therapy
CPT/HCPCS: 80053; 80061; 82306; 83036; 84439; 84443; 85025

== ENCOUNTER 2024-01-17 12:13 | Outpatient (CLI) | payer OTHER, SELFPAY ==
--- NOTE | 2024-01-17 12:19 | XR_ITS ---
FINAL REPORT CLINICAL HISTORY: Workplace injury FINDINGS: Left forearm Two views were obtained. There is no acute fracture or dislocation. The joint spaces appear normal. No soft tissue abnormality is identified. IMPRESSION: No acute process. Reviewed, Interpreted and Dictated by Amos Medina MD Transcribed by Livier Ramirez Authenticated and [facility]
== END 2024-01-17 23:59 | disposition home or self-care (01) ==
PROVIDERS: PCP Internal Medicine; Visit Provider Internal Medicine
DX: M79.632 Pain in left forearm (principal); S59.912A Unspecified injury of left forearm, initial encounter
CPT/HCPCS: 73090

== ENCOUNTER 2024-02-06 10:41 | Emergency (ER) | payer BC, SELFPAY ==
[2024-02-06 10:50] VITALS: BP 125/84; PULSE 75; RESP 18; TEMP 36.9; O2SAT 97; BMI 43.7
--- NOTE | 2024-02-06 11:07 | EXP.UTC ---
Discharge Plan Disposition Patient Disposition: Home, Self-Care Condition: Good Prescriptions Prescriptions: New azithromycin [Zithromax] 250 mg tablet 250 mg PO UD DOSE PK Qty: 6 0RF Rx Instructions: Take two (2) tablets today, then one (1) tablet days #2 thru #5 methylprednisolone 4 mg Tablets,Dose Pack 4 mg PO DIRECTED 6 Days Qty: 21 0RF Rx Instructions: Take 1 pack as directed for 6 days xdwswkmhgibrevz-wcvahlhye-QZ [Bromfed DM] 2-30-10 mg/5 mL Syrup 5 ml PO Q6H PRN (Reason: Cough) Qty: 240 0RF No Action levothyroxine 75 mcg tablet 75 mcg PO DAILY Qty: 30 2RF cholecalciferol (vitamin D3) 25 mcg (1,000 unit) capsule 25 mcg PO DAILY Qty: 30 2RF Referrals Follow up/Referrals: Antony Cramer DO [Primary Care Provider] - See instructions Activity Restrictions/Add. Instructions Additional Instructions/Restrictions: Drink plenty of fluids. Take tylenol or ibuprofen for pain or fever. Take the medications as directed. Follow up with your regular doctor. GO TO THE ER FOR ANY WORSENING SYMPTOMS Don't start the oral steroids until tomorrow since you had the steroid shot here today. Clinical Impressions Clinical Impression: Sinusitis, Migraine Stand Alone Forms Stand Alone Forms: Work/School Release Instructions Patient Instructions: Migraine -- Adult, DI for Migraine, Azithromycin, Methylprednisolone Injection, Ketorolac Injection, Dexamethasone Injection Discharge ED Provider: Sesar Olson [facility] General Stated complaint: headache Mode of Arrival: Ambulatory Source of Information: Patient Limitations: No Limitations Time Seen by Provider: 02/06/24 11:07 Description of Symptoms (Recalled from Triage Doc. by RN): Pt's symptoms are sinus pressure, [place], and fatigued. HEENT Symptoms (Recalled from RN notes): Yes Resp Symptoms (Recalled from RN notes): No Skin Symptoms (Recalled from RN notes): No MS Symptoms (Recalled from RN notes): No Functional Status (Recalled from RN notes): n/a History of Present Illness Provider Complaint: She states that for the past 3 days she has had worsening sinus congestion and sinus drainage. She states this is triggering her to have a migraine. She has a history of migraine headache. She also has had nausea, but no vomiting or diarrhea. Related Data Previous Rx's Medication Instructions Recorded cholecalciferol (vitamin D3) 25 25 mcg PO DAILY #30 caps 01/17/24 mcg (1,000 unit) capsule levothyroxine 75 mcg tablet 75 mcg PO DAILY #30 tabs 01/17/24 azithromycin 250 mg tablet 250 mg PO UD DOSE PK #6 tabs 02/06/24 (Zithromax) ybyvisesdokiqsd-tqpvsiqpehwgilh-CY 5 ml PO Q6H PRN Cough #240 mL 02/06/24 2 mg-30 mg-10 mg/5 mL oral syrup (Bromfed DM) methylprednisolone 4 mg tablets in 4 mg PO DIRECTED 6 days #21 tabs 02/06/24 a dose pack Allergies Allergy/AdvReac Type Severity Reaction Status Date / Time Sulfa (Sulfonamide Allergy Mild Verified 02/06/24 10:57 Antibiotics) [SULFA (SULFONAMIDE ANTIBIOTICS)] Worker's Comp Is this a Worker's Comp case?: No [facility] Disclaimer: The information contained in this section may have been updated after the patient was seen, as this information can be updated by other users. Medical History Dyshidrotic eczema Endometriosis Heart murmur Hemorrhoid History of COVID-19 Hypertension Hypothyroidism (~01/16/18) Ingrown toenail Refer to podiatry. Insomnia RF Trazodone Migraine Vitamin D deficiency (~01/16/18) Weight gain Surgical History Dermoid tumor REMOVED History of bilateral salpingectomy History of endometrial ablation Hx of dilation and curettage Hx of tonsillectomy Family History Other Cancer Diabetes Heart attack Hypertension Social History Smoking Status: Never smoker alcohol intake: never substance use type: denies use current occupational status: employed Travel in the last 8 weeks: None household members: spouse and other housing: house marital status: ROS Obtained: Yes All systems reviewed & no additional complaints except as documented Constitutional Constitutional: Reports headache(s) and Reports poor appetite Eyes Eyes: Reports system reviewed and no additional complaints, except as documented ENT Ears, Nose, Mouth, and Throat: Reports as per HPI, Denies disequilibrium, Denies dizziness and Reports headache(s) Cardiovascular Cardiovascular: Reports system reviewed and no additional complaints, except as documented and Denies chest pain Respiratory Respiratory: Denies shortness of breath, Denies chest congestion, Reports cough, Denies stridor and Denies wheezing Gastrointestinal Gastrointestingal: Reports system reviewed and no additional complaints, except as documented; Denies abdominal pain, diarrhea or vomiting Musculoskeletal Musculoskeletal: Reports system reviewed and no additional complaints, except as documented, Denies abnormal gait and Denies arthralgias Integumentary/Breasts Skin/Breast: Reports system reviewed and no additional complaints, except as documented and Denies rash Neurologic Neurologic: Reports as per HPI, Denies abnormal gait, Denies confusion, Denies disequilibrium, Denies dizziness, Denies focal weakness, Reports headache(s), Denies paresthesias and Denies radicular pain Allergic/Immunologic Allergic/Immunologic: Denies wheezing Physical Exam General General appearance: alert and in no apparent distress Eye Eye exam: Present normal appearance, PERRL and EOMI ENT ENT exam: Present mucous membranes moist and normal external ear exam Expanded ENT Exam External ear exam: Present normal external inspection TM/Canal exam: Bilateral TM: erythema and bulging Nose exam: Absent sinus tenderness Nasal speculum exam: Bilateral: normal Mouth exam: Present normal external inspection; Absent drooling Teeth exam: Present normal inspection Throat exam: Present tonsillar erythema and tonsillomegaly Neck Neck exam: Present normal inspection, full ROM and trachea midline; Absent tenderness, lymphadenopathy or thyromegaly Chest Chest inspection: Present normal inspection and symmetric chest wall rise; Absent tenderness or rash Respiratory Respiratory exam: Present normal lung sounds bilaterally; Absent respiratory distress, wheezes, stridor or accessory muscle use Cardiovascular Cardiovascular exam: Present regular rate, normal rhythm and normal heart sounds Abdominal Exam Abdominal exam: Present soft; Absent distention, tenderness, guarding, rebound or rigidity Extremities Exam Extremities exam: Present normal inspection, full ROM and normal capillary refill; Absent tenderness or calf tenderness Back Exam Back exam: Present normal inspection and full ROM; Absent tenderness Neurological Exam Neurological exam: Present alert, oriented X3, CN II-XII intact, normal gait and reflexes normal; Absent motor sensory deficit Expanded Neurological Exam Speech: Present fluid speech Cranial nerves: Normal: EOM function (II, III, IV, ), facial sensation (V), facial palsy (VII), gag reflex (IX), spinal accessory function (XI) and tongue deviation (XII) Cerebellar function: normal gait Motor strength - LUE: 5/5 Motor strength - RUE: 5/5 Motor strength - LLE: 5/5 Motor strength - RLE: 5/5 Upper motor neuron exam: Normal: aly neglect and sensory extinction Sensory exam upper extremity: Normal: light touch and 2 point discrimination Sensory exam lower extremity: Normal: light touch and 2 point discrimination DTR: 2+: biceps (L), biceps (R), patellar (L), patellar (R), Achilles tendon (L) and Achilles tendon (R) Psychiatric Psychiatric exam: Present normal affect and normal mood Skin Skin exam: Present warm, dry, intact and normal color Lymphatic Lymphatic Findings: no adenopathy Medical Decision Making Medical Records Medical records reviewed: No I reviewed the patient's medical records. Luis Inquiry Pt receiving controlled substance: No Vital Signs: 02/06/24 10:50 Temperature 98.5 F Temperature Source Oral Pulse Rate [Right Radial] 75 Respiratory Rate 18 Blood Pressure [Right Arm] 125/84 Blood Pressure Mean [Right Arm] 97 Blood Pressure Source [Right Arm] Automatic Cuff Blood Pressure Position [Right Arm] Sitting 02 Sat by Pulse Oximetry 97 Oxygen Delivery Method Room Air
[2024-02-06] MEDS: DEXAMETHASONE 4MG/ML 1ML VIAL 8 MG IM (11:23)
[2024-02-06] MEDS: KETOROLAC 60MG/2ML VIAL 60 MG IM (11:23)
[2024-02-06 11:35] VITALS: BP 125/84; PULSE 75; RESP 18; TEMP 36.9; O2SAT 97
== END 2024-02-06 11:35 | disposition home or self-care (01) ==
PROVIDERS: Emergency Provider Nurse Practitioner Family; PCP Internal Medicine
DX: G43.909 Migraine, unspecified, not intractable, without status migrainosus (principal); J01.90 Acute sinusitis, unspecified; R11.0 Nausea; R09.81 Nasal congestion
CPT/HCPCS: 96372; 99212; 99214; G0463

== ENCOUNTER 2024-02-16 19:30 | Emergency (ER) | payer SELFPAY ==
[2024-02-16 19:37] VITALS: BP 196/130; PULSE 111; RESP 19; TEMP 36.6; O2SAT 98; BMI 40.3
--- NOTE | 2024-02-16 19:45 | PC.NURSE ---
Spoke with MD who will eval momentarily. Gave primary nurse report.
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
[2024-02-16] MEDS: ACETAMINOPHEN 1,000MG/100ML VIAL 1000 MG IV (19:56)
[2024-02-16] MEDS: ONDANSETRON 4MG/2ML VIAL 4 MG IV (19:57)
[2024-02-16] MEDS: LACTATED RINGERS 1000ML 1,000 ML 999 ML IV (19:57)
[2024-02-16] MEDS: IBUPROFEN 800 MG TABLET PO (21:11)
[2024-02-16 22:08] VITALS: BP 128/84; PULSE 84; RESP 16; TEMP 36.6; O2SAT 96
== END 2024-02-16 22:11 | disposition home or self-care (01) ==
PROVIDERS: Emergency Provider Student in an Organized Health Care Education/Training Program; PCP Internal Medicine
DX: S09.90XA Unspecified injury of head, initial encounter (principal); S00.03XA Contusion of scalp, initial encounter; V47.6XXA Car passenger injured in collision with fixed or stationary object in traffic accident, initial encounter
CPT/HCPCS: 70450; 96361; 96374; 96375; 99284; J0131; J2405

== ENCOUNTER 2024-04-25 15:41 | Emergency (ER) | payer SELFPAY ==
--- NOTE | 2024-04-25 15:59 | ED_ITS ---
Discharge Plan Disposition Patient Disposition: Home, Self-Care Condition: Good Prescriptions Prescriptions: New ibuprofen [IBU] 800 mg tablet 800 mg PO Q8HP PRN (Reason: Moderate Pain) Qty: 30 0RF ondansetron 4 mg Tablet,Disintegrating 4 mg PO Q8H PRN (Reason: Nausea) Qty: 12 0RF No Action levothyroxine 75 mcg tablet 75 mcg PO DAILY Qty: 30 2RF cholecalciferol (vitamin D3) 25 mcg (1,000 unit) capsule 25 mcg PO DAILY Qty: 30 2RF azithromycin [Zithromax] 250 mg tablet 250 mg PO UD DOSE PK Qty: 6 0RF Rx Instructions: Take two (2) tablets today, then one (1) tablet days #2 thru #5 methylprednisolone 4 mg Tablets,Dose Pack 4 mg PO DIRECTED 6 Days Qty: 21 0RF Rx Instructions: Take 1 pack as directed for 6 days gqhufoxkefoivnh-esiprshmx-NE [Bromfed DM] 2-30-10 mg/5 mL Syrup 5 ml PO Q6H PRN (Reason: Cough) Qty: 240 0RF Referrals Follow up/Referrals: Antony Cramer DO [Primary Care Provider] - See instructions Activity Restrictions/Add. Instructions Additional Instructions/Restrictions: Drink plenty of fluids. Take tylenol or ibuprofen for pain or fever. Take the medications as directed. Follow up with your regular doctor. GO TO THE ER FOR ANY WORSENING SYMPTOMS Clinical Impressions Clinical Impression: Migraine, Acute viral syndrome Instructions Patient Instructions: DI for Migraine, Ondansetron Print Language Print Language: Tamazight Discharge ED Provider: Sesar Olson [facility] General Stated complaint: headache Time Seen by Provider: 04/25/24 15:59 Related Data Previous Rx's ?Medication ?Instructions ?Recorded cholecalciferol (vitamin D3) 25 25 mcg PO DAILY #30 caps 01/17/24 mcg (1,000 unit) capsule levothyroxine 75 mcg tablet 75 mcg PO DAILY #30 tabs 01/17/24 azithromycin 250 mg tablet 250 mg PO UD DOSE PK #6 tabs 02/06/24 (Zithromax) mufavcycjmhamnm-xsrzfxkniwpvguj-JT 5 ml PO Q6H PRN Cough #240 mL 02/06/24 2 mg-30 mg-10 mg/5 mL oral syrup (Bromfed DM) methylprednisolone 4 mg tablets in 4 mg PO DIRECTED 6 days #21 tabs 02/06/24 a dose pack ibuprofen 800 mg tablet (IBU) 800 mg PO Q8HP PRN Moderate Pain 04/25/24 #30 tabs ondansetron 4 mg disintegrating 4 mg PO Q8H PRN Nausea #12 tabs 04/25/24 tablet Allergies Allergy/AdvReac Type Severity Reaction Status Date / Time Sulfa (Sulfonamide Allergy Mild Verified 02/06/24 10:57 Antibiotics) [SULFA (SULFONAMIDE ANTIBIOTICS)] [facility] Disclaimer: The information contained in this section may have been updated after the patient was seen, as this information can be updated by other users. Medical History Dyshidrotic eczema Endometriosis Heart murmur Hemorrhoid History of COVID-19 Hypertension Hypothyroidism (~01/16/18) Ingrown toenail Refer to podiatry. Insomnia RF Trazodone Migraine Vitamin D deficiency (~01/16/18) Weight gain Surgical History Dermoid tumor REMOVED History of bilateral salpingectomy History of endometrial ablation Hx of dilation and curettage Hx of tonsillectomy Family History Other Cancer Diabetes Heart attack Hypertension Social History Smoking Status: Unknown if ever smoked alcohol intake: never substance use type: denies use current occupational status: employed Travel in the last 8 weeks: None household members: spouse and other housing: house marital status: ROS Obtained: Yes All systems reviewed & no additional complaints except as documented Constitutional Constitutional: Denies chills and Denies fever(s) Eyes Eyes: Denies eye discharge ENT Ears, Nose, Mouth, and Throat: Denies dizziness, Denies otalgia and Denies sore throat Cardiovascular Cardiovascular: Denies chest pain Respiratory Respiratory: Denies shortness of breath, Denies chest congestion, Denies cough, Denies stridor and Denies wheezing Gastrointestinal Gastrointestingal: Denies nausea or vomiting Musculoskeletal Musculoskeletal: Reports system reviewed and no additional complaints, except as documented and Denies arthralgias Integumentary/Breasts Skin/Breast: Denies rash Neurologic Neurologic: Denies dizziness and Denies paresthesias Allergic/Immunologic Allergic/Immunologic: Denies wheezing Physical Exam General General appearance: alert and in no apparent distress Head Head exam: atraumatic, normocephalic and normal inspection Eye Eye exam: Present normal appearance, PERRL and EOMI ENT ENT exam: Present normal exam, normal oropharynx, mucous membranes moist, TM's normal bilaterally and normal external ear exam Neck Neck exam: Present normal inspection, full ROM and trachea midline; Absent meningismus or lymphadenopathy Chest Chest inspection: Present normal inspection and symmetric chest wall rise; Absent tenderness Respiratory Respiratory exam: Present normal lung sounds bilaterally; Absent respiratory distress Cardiovascular Cardiovascular exam: Present regular rate and normal rhythm; Absent JVD Abdominal Exam Abdominal exam: Present soft and normal bowel sounds; Absent distention, tenderness or guarding Extremities Exam Extremities exam: Present normal inspection, full ROM and normal capillary refill; Absent calf tenderness Back Exam Back exam: Present normal inspection; Absent tenderness Neurological Exam Neurological exam: Present alert and oriented X3 Psychiatric Psychiatric exam: Present normal affect and normal mood Skin Skin exam: Present warm, dry, intact and normal color Lymphatic Lymphatic Findings: no adenopathy Medical Decision Making Medical Records Medical records reviewed: No I reviewed the patient's medical records. Luis Inquiry Pt receiving controlled substance: No
[2024-04-25 16:10] VITALS: BP 150/88; PULSE 62; RESP 20; TEMP 36.8; O2SAT 97; BMI 41.9
[2024-04-25] MEDS: KETOROLAC 60MG/2ML VIAL 60 MG IM (16:44)
[2024-04-25] MEDS: DEXAMETHASONE 4MG/ML 1ML VIAL 8 MG IM (16:44)
[2024-04-25 16:50] VITALS: BP 150/88; PULSE 62; RESP 20; TEMP 36.8; O2SAT 97
== END 2024-04-25 16:54 | disposition home or self-care (01) ==
PROVIDERS: Emergency Provider Nurse Practitioner Family; PCP Internal Medicine
DX: G43.909 Migraine, unspecified, not intractable, without status migrainosus (principal)
CPT/HCPCS: 87635; 96372; 99212; 99214; G0463; J1100; J1885

== ENCOUNTER 2024-06-21 14:50 | Emergency (ER) | payer BC, SELFPAY ==
[2024-06-21 14:51] VITALS: BP 147/94; PULSE 86; RESP 18; TEMP 36.9; O2SAT 97; BMI 42.0
--- NOTE | 2024-06-21 15:02 | XR_ITS ---
FINAL REPORT CLINICAL HISTORY: chronic overuse injury, rule out fx COMPARISON: None FINDINGS: RIGHT WRIST Three views show no evidence of an acute, displaced fracture or dislocation of the visualized bony architecture. The joint spaces appear normal. IMPRESSION: Unremarkable exam. Reviewed, Interpreted and Dictated by Jana Smart MD Transcribed by Demetra Ruth Authenticated and [facility]
--- NOTE | 2024-06-21 15:08 | HMH.EDGENADL ---
Discharge Plan Disposition Patient Disposition: Home, Self-Care Prescriptions Prescriptions: New prednisone 20 mg tablet 40 mg PO DAILY 5 Days Qty: 10 0RF No Action levothyroxine 75 mcg tablet 75 mcg PO DAILY Qty: 30 2RF cholecalciferol (vitamin D3) 25 mcg (1,000 unit) capsule 25 mcg PO DAILY Qty: 30 2RF azithromycin [Zithromax] 250 mg tablet 250 mg PO UD DOSE PK Qty: 6 0RF Rx Instructions: Take two (2) tablets today, then one (1) tablet days #2 thru #5 methylprednisolone 4 mg Tablets,Dose Pack 4 mg PO DIRECTED 6 Days Qty: 21 0RF Rx Instructions: Take 1 pack as directed for 6 days yyeimzbrwobnjbk-ojetgrzlk-YY [Bromfed DM] 2-30-10 mg/5 mL Syrup 5 ml PO Q6H PRN (Reason: Cough) Qty: 240 0RF ibuprofen [IBU] 800 mg tablet 800 mg PO Q8HP PRN (Reason: Moderate Pain) Qty: 30 0RF ondansetron 4 mg Tablet,Disintegrating 4 mg PO Q8H PRN (Reason: Nausea) Qty: 12 0RF Referrals Follow up/Referrals: Antony Cramer DO [Primary Care Provider] - See instructions Activity Restrictions/Add. Instructions Additional Instructions/Restrictions: Call your family doctor to establish care for this visit to the emergency department and schedule follow-up within 48 hours to ensure improvement. If you have any worsening of your condition or any other concerning signs or symptoms, return to the emergency department or your primary care doctor for further evaluation. Wear your thumb spica splint at work at all times. Ice the wrist when resting at home. Take Tylenol 1000 mg every 6 hours (4 times daily) and ibuprofen 400 mg every 6 hours (4 times daily) as needed with food and water to prevent GI upset and kidney damage. Take prednisone each morning for the next 5 days. Clinical Impressions Clinical Impression: De Quervain's disease (tenosynovitis) Print Language Print Language: Nepalese Discharge ED Provider: Terry Hale General Adult HPI General Chief complaint: Extremity Problem,Nontraumatic Stated complaint: R wrist pain and nausea Time Seen by Provider: 06/21/24 14:58 Mode of Arrival: Ambulatory Source of Information: Patient Limitations: No Limitations Description of Symptoms (Recalled from ER Triage Doc. by RN): r wrist pain History of Present Illness HPI narrative: Please note that above description of symptoms, in this electronic medical record under categorization of recalled from ER triage doctor by RN are reflective of an initial nursing assessment, however, is not reflective of my full history and physical exam that was personally taken and clarified. Consequentially, this preceding description of symptoms, which may include the patient's categorized chief complaint in the EMR, do not reflect my personal clinical impression, and the ultimate description of history of present illness and patient stated complaints should be deferred to this section of the note. Unless stated otherwise or congruent with this section of the note, additional signs, symptoms, or incongruence should be interpreted as inaccurate with my clinical impression. Related Data Previous Rx's ?Medication ?Instructions ?Recorded cholecalciferol (vitamin D3) 25 25 mcg PO DAILY #30 caps 01/17/24 mcg (1,000 unit) capsule levothyroxine 75 mcg tablet 75 mcg PO DAILY #30 tabs 01/17/24 azithromycin 250 mg tablet 250 mg PO UD DOSE PK #6 tabs 02/06/24 (Zithromax) rladeghkvfaunal-ugpffvcpswtyswj-JW 5 ml PO Q6H PRN Cough #240 mL 02/06/24 2 mg-30 mg-10 mg/5 mL oral syrup (Bromfed DM) methylprednisolone 4 mg tablets in 4 mg PO DIRECTED 6 days #21 tabs 02/06/24 a dose pack ibuprofen 800 mg tablet (IBU) 800 mg PO Q8HP PRN Moderate Pain 04/25/24 #30 tabs ondansetron 4 mg disintegrating 4 mg PO Q8H PRN Nausea #12 tabs 04/25/24 tablet prednisone 20 mg tablet 40 mg (2 x 20 mg) PO DAILY 5 days 06/21/24 #10 tabs Allergies Allergy/AdvReac Type Severity Reaction Status Date / Time Sulfa (Sulfonamide Allergy Mild Verified 02/06/24 10:57 Antibiotics) [SULFA (SULFONAMIDE ANTIBIOTICS)] [facility] Disclaimer: The information contained in this section may have been updated after the patient was seen, as this information can be updated by other users. Medical History Dyshidrotic eczema Endometriosis Heart murmur Hemorrhoid History of COVID-19 Hypertension Hypothyroidism (~01/16/18) Ingrown toenail Refer to podiatry. Insomnia RF Trazodone Migraine Vitamin D deficiency (~01/16/18) Weight gain Surgical History Dermoid tumor REMOVED History of bilateral salpingectomy History of endometrial ablation Hx of dilation and curettage Hx of tonsillectomy Family History Other Cancer Diabetes Heart attack Hypertension Social History Smoking Status: Never smoker alcohol intake: never substance use type: denies use current occupational status: employed Travel in the last 8 weeks: None household members: spouse and other housing: house marital status: ROS Obtained: Yes All systems reviewed & no additional complaints except as documented Physical Exam General General appearance: alert Head Head exam: atraumatic and normocephalic Eye Eye exam: Present normal appearance, PERRL and EOMI Neck Neck exam: Present normal inspection, full ROM and trachea midline Respiratory Respiratory exam: Absent respiratory distress, wheezes, stridor, accessory muscle use or prolonged expiratory phase Cardiovascular Cardiovascular exam: Present other (Pulses equal symmetric in upper and lower extremities) Abdominal Exam Abdominal exam: Present soft; Absent distention, tenderness or pulsatile mass Extremities Exam Extremities exam: Present other (Per MDM); Absent edema Neurological Exam Neurological exam: Present alert, oriented X3 and CN II-XII intact; Absent motor sensory deficit Skin Skin exam: Present warm and dry; Absent diaphoresis or erythema Medical Decision Making Medical Records Medical records reviewed: Yes I reviewed the patient's medical records. Screening: Per USPSTF and CDC recommendations, given the prevalence of disease in our region, it is our hospital?s policy to screen for HIV and viral Hepatitis for all patients aged 18 and over and those with ongoing risk factors. Luis Inquiry Pt receiving controlled substance: No Luis was queried for this patient: No Vital Signs: 06/21/24 14:51 Temperature 98.4 F Temperature Source Oral Pulse Rate [Left] 86 Respiratory Rate 18 Blood Pressure [Left Arm] 147/94 H Blood Pressure Mean [Left Arm] 111 02 Sat by Pulse Oximetry 97 Orders (Tests/Meds): ED MEDICATIONS Discontinued Medications Generic Name Dose Route Start Last Admin Trade Name Freq PRN Reason Stop Dose Admin Prednisone 40 mg 06/21/24 15:02 06/21/24 15:11 Prednisone 20mg Tab PO 06/21/24 15:03 40 mg ONCE ONE Administration ORDERS Category Date Time Status Wrist XR right minimum 3 views [XR wrist RT min 3V] Exams 06/21/24 15:02 Taken Stat HIV (1&2) Antibody Rapid Stat Lab 06/21/24 15:01 Ordered Hep C Ab with Reflex to RNA Stat Lab 06/21/24 15:01 Ordered Medical Decision Narrative: 33-year-old female no relevant medical history presenting with right wrist pain. 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 States that over the past few weeks she has been having pain in her right wrist. States that she needs to wear a brace at work, but only way that she is able to wear brace at work, per policy, as with the doctors note. They also requested x-ray to make sure there was nothing else wrong. Patient states that she denies any trauma, falls, acute changes. Worse with use, better with rest. Has tried Tylenol and Motrin and they helped mildly. History was obtained via conversation with patient. On arrival, patient hemodynamically stable, alert, oriented x4, appropriate, GCS 15, moving all extremities spontaneously, pupils equal and reactive to light. Full physical exam performed and significant for mild swelling overlying right radiocarpal joint. Mild tenderness with palpation. Positive De Quervain tenosynovitis sign. Neurovascularly intact, digits neurovascular intact and range of motion intact and full. Differential includes tendinitis, tenosynovitis, fracture, sprain, among others. Patient was given first dose of prednisone 40 mg here. Brace was also placed. Patient requires orthopedic bracing due to weakness or deformity requiring stabilization. The use of this brace will benefit the patient's functionality and prevent further injury. X-rays ordered, on independent to rotation these demonstrated no acute bony abnormality. On reevaluation, patient resting at baseline. Given patient presentation, workup, history, this most likely represents tenosynovitis in the setting of overuse injury. Because patient at baseline without signs or symptoms of clinical decompensation, deemed appropriate for discharge. Results were relayed to patient who voiced understanding and were agreeable to outpatient management and follow up. I discussed my clinical impression with patient and answered all questions. At this time, the evidence for any other entities in the differential is insufficient to warrant any further testing or ED observation. This was explained as well. Advisory was given that persistent or worsening symptoms require further evaluation. I confirmed the understanding of this discussion. Historian Research Assistant disclaimer Much of this encounter note is an electronic it field technician spoken language to printed text. Electronic it field technician of the spoken language may permit errors. Although I have reviewed the note, some errors may still exist. Critical Care Critical Care Time Critical Care Time: No
[2024-06-21] MEDS: predniSONE 20MG TAB 40 MG PO (15:11)
[2024-06-21 15:48] VITALS: BP 144/77; PULSE 81; RESP 18; TEMP 36.8; O2SAT 98
== END 2024-06-21 15:54 | disposition home or self-care (01) ==
PROVIDERS: Emergency Provider Emergency Medicine; PCP Internal Medicine
DX: M65.4 Radial styloid tenosynovitis [de Quervain] (principal); M25.531 Pain in right wrist
CPT/HCPCS: 73110; 99283

== ENCOUNTER 2024-08-09 15:39 | Outpatient (CLI) | payer BC, SELFPAY ==
--- NOTE | 2024-08-09 15:39 | MR_ITS ---
PROCEDURE INFORMATION: Exam: MR Right Upper Extremity Joint Without Contrast; Wrist Exam date and time: 08/09/2024 4:10 PM Age: 33 years old Clinical indication: Patient HX: Right medial wrist pain; Additional info: Continued wrist pain TECHNIQUE: Imaging protocol: Magnetic resonance imaging of the right upper extremity without contrast. Exam focused on the wrist. COMPARISON: No relevant prior studies available. FINDINGS: Bones/joints: Normal bone marrow signal. No worrisome lytic or blastic lesion. No joint effusion. Scapholunate ligament: Unremarkable. No tear. Lunotriquetral ligament: Unremarkable. No tear. Triangular fibrocartilage complex: Unremarkable. No tear. Flexor compartment tendons: Unremarkable. No tear. Extensor compartment tendons: Note made of mild peritendinous edema around the distal abductor pollicis longus tendon and myotendinous junction of the extensor pollicis brevis at the point of intersection over the distal lateral radius. Soft tissues: Otherwise unremarkable. IMPRESSION: Mild peritendinous edema in the 1st extensor compartment at the point of intersection over the distal lateral radius. Most suggestive of de Quervain's tenosynovitis. Recommend correlation. Otherwise, no acute abnormality.
== END 2024-08-09 23:59 | disposition home or self-care (01) ==
LOC: RAD 15:39
PROVIDERS: PCP Internal Medicine; Visit Provider Internal Medicine
DX: M65.4 Radial styloid tenosynovitis [de Quervain] (principal)
CPT/HCPCS: 73221

== ENCOUNTER 2024-09-06 14:04 | Outpatient (POV) | payer BC, SELFPAY ==
[2024-09-06 15:19] VITALS: BP 128/74; PULSE 96; RESP 18; O2SAT 96; BMI 45.1
--- NOTE | 2024-09-06 15:44 | A.OFFVIS_ITS ---
HPI Data of Consult Patient: new to practice Consult date: 09/06/24 Requesting Physician: Clarissa Ospina APRN Primary Care Provider: Antony Cramer DO Consult Narrative Reason for consult: Right wrist, finger pain History of present illness: Ms. Duran is a 34 year old female who presents today as a new patient. She is a referral from Dr. Cramer's office. Today she does rate her pain a 3 out of 10 however does state the pain will get much worse to at least a 5 or more. Patient states that she has been experiencing pain in her right wrist since before May and it is progressively worsened. Patient denies any specific trauma or injury that initially started this. Patient describes it as a throbbing, needlelike sensation with any type of pressure. She does state that she wakes up with it tingling. She states the pain does interfere with her ability perform activities of daily living such as cooking and cleaning. Patient does state the pain is all along the medial side of her wrist and that she even has difficulty forming a fist due to the pain. Patient does state that it primarily goes into her hand on the outer side of her thumb and index finger. Patient has tried oral medications such as ibuprofen and Tylenol along with heat and ice and topicals with minimal relief. Patient has been given oral steroids with no help and is also been doing physical therapy. Patient states that the physical therapy has seemed to help some but that certain movements still cause pain. Patient states that they had talked about doing dry needling coming up. She has also continued physician guided at home exercising and stretching. Patient denies any prior injection history or surgery history on t his extremity. Patient does state that she has been off work since May and that she is only on short-term disability and is scheduled to go back to September 30. Patient is interested in any help we may be able to provide. She denies any heart or kidney issues. Her Luis has been reviewed and is appropriate. CC: Clarissa Ospina APRN [facility] Disclaimer: The information contained in this section may have been updated after the patient was seen, as this information can be updated by other users. Medical History Post-viral cough syndrome Rhinovirus infection Upper respiratory infection COVID-19 Fever and chills Close exposure to 2019 novel coronavirus Frequent headaches Otitis media Worsening headaches Chronic headaches Headache Forearm injury Viral gastroenteritis Hematoma of frontal scalp Minor head injury Sinusitis History of COVID-19 Migraine Hypertension Endometriosis Hemorrhoid Hypothyroidism (~01/16/18) Vitamin D deficiency (~01/16/18) Heart murmur Dyshidrotic eczema Insomnia RF Trazodone Weight gain Ingrown toenail Refer to podiatry. Surgical History History of endometrial ablation History of bilateral salpingectomy Dermoid tumor REMOVED Hx of dilation and curettage Hx of tonsillectomy Family History Other Cancer Diabetes Heart attack Hypertension Social History (Updated 09/06/24 @ 15:20 by Annemarie Ortiz RN) Smoking Status: Never smoker alcohol intake: never substance use type: denies use current occupational status: employed Travel in the last 8 weeks: None household members: spouse and other housing: house marital status: Review of Systems Review of Systems Review of systems:: pertinent systems reviewed and negative unless documented below Review of systems (narrative): Review of Systems: General: No recent weight changes, no fever, no sleep disturbances Respiratory: No cough, no shortness of air, no recurring pulmonary infections Cardiovascular/peripheral vascular: No chest pain, no palpitations, no edema, no shortness of breath Gastrointestinal: No new onset incontinence, normal bowel movements reported Genitourinary: No new onset incontinence Musculoskeletal: Right wrist pain, thumb and index finger pain Psychiatric: [Normal mood/affect] Neurological: [Denies weakness in extremities], [denies balance issues] Meds Home Medications and Allergies Home Medications ?Medication ?Instructions ?Recorded ?Confirmed ?Type Right Wrist Splint 09/06/24 09/06/24 History New Prescriptions to Start Prescriptions: Allergies Allergy/AdvReac Type Severity Reaction Status Date / Time Sulfa (Sulfonamide Allergy Mild Verified 09/05/24 08:53 Antibiotics) (SULFA (SULFONAMIDE ANTIBIOTICS)) Objective Vital signs: Pulse Resp BP Pulse Ox O2 Del Method 96 H 18 128/74 96 Room Air 09/06/24 15:19 09/06/24 15:19 09/06/24 15:19 09/06/24 15:19 09/06/24 15:19 Narrative: Physical Exam: General: Alert and oriented x3, no acute distress, pleasant and cooperative Lungs: Respirations even and unlabored, symmetrical chest expansion Eyes: PERRL Musculoskeletal: Flexion and extension of right wrist somewhat guarded secondary to pain, altered client technologies analyst from right to left Neurological: Speech clear, no gross sensory deficit Assessment and Plan *Assessment and plan (1) Right wrist pain: Status: Resolved Category: Medical Code(s): M25.531 - Pain in right wrist Plan Patient is experiencing significant pain in her right wrist that does go in and around the medial aspect of her right thumb and index finger. Patient does have altered client technologies analyst from the right hand to the left. I did discuss with the patient due to the conservative measures she has tried since May with minimal improvement that she may benefit from a right radial nerve block. Risk and benefits were discussed with patient and she would like to proceed forward with this plan of care. Patient will also be ordered a compounded cream and a 2-week supply of diclofenac 75 mg twice a day will be sent in. Patient was counseled to discontinue all other NSAIDs and to take this medication with food to minimize GI upset. Patient acknowledges understanding agrees with plan of care. Patient will be scheduled for a right radial nerve block. Patient has been instructed to contact the clinic with any concerns before the next appointment. Dr. Lu has reviewed this note and agrees with this plan of care. This note was dictated using voice recognition software and make contain errors or omissions. All injections are used with Lidocaine, Bupivacaine and Depo Medrol. Occasionally urine drug screen is needed to verify patient's compliance with our office pain contract. This is ordered based off specific treatments related to chronic pain with the potential to abuse certain medications.
== END 2024-09-06 23:59 | disposition home or self-care (01) ==
PROVIDERS: PCP Internal Medicine; Visit Provider Nurse Practitioner Family
DX: M25.531 Pain in right wrist (principal); Z73.89 Other problems related to life management difficulty
CPT/HCPCS: 99202; G0463

== ENCOUNTER 2024-09-17 08:00 | Outpatient (RCR) | payer BC, SELFPAY ==
--- NOTE | 2024-09-04 10:35 | HMH.PTOPEV ---
PT Outpatient Evaluation Rehab PT Outpatient Evaluation Start: 09/04/24 09:51 Freq: Status: Active Protocol: Document 09/04/24 09:51 BENJIE (Rec: 09/04/24 10:34 BENJIE [id number]) E-signed By Shoaib Clark, PT Outpatient Therapy Subjective History Subjective History Patient is a 33 year old female presenting to outpatient PT with reports of R forearm, wrist and CMCJ pain . Symptoms of insidious onset starting approx 3 months ago. Patient works at [employer] where duties include repetitive gripping/lifting activities. Patient was previously seen by PT with minimal improvements noted. Referred specifically for dry needling. Most recent imaging include peritendinous edema of the 1st digit extensor compartment consistent with De Quervain's. No other comorbidities to report. New diagnosis of cancer in past 12 No months? Chief Complaint Pain,Stiff,Weakness Symptom Type Ache,Sharp Symptoms Relieved By Rest/Positioning,Heat,Ice,OTC Meds Symptoms Aggravated By Physical Activity,Lifting Prior Functional Limitations None Current Functional Limitations Lifting,Housework,Driving Symptom Description Intermittent Level of pain today (0-10) 4 Pain scale - at its best (0-10) 0 Pain scale - at its worst (0-10) 8 Wrist/Hand Eval Palpation Tenderness/Visual Exam Wrist pain right Wrist Range of Motion Right Wrist Extension Active Range of Motion ( 32 degrees) Wrist Flexion Active Range of Motion ( 24 degrees) Wrist Radial Deviation Active Range of 21 Motion (degrees) Wrist Ulnar Deviation Active Range of 22 Motion (degrees) Forearm Supination Active Range of 33 Motion (degrees) Forearm Pronation Active Range of Motion 64 (degrees) Thumb Range of Motion Right Thumb ROM Reason Not Measured Within Functional Limits Wrist Manual Muscle Testing Right Wrist Extension Strength Grade 4 Good Wrist Flexion Strength Grade 4- Good- Wrist Radial Deviation Strength Grade 4 Good Wrist Ulnar Deviation Strength Grade 4- Good- Monitor Tech/Pinch Strength Monitor Tech Strength Measurement (lbs) 12 Tip Pinch (2-point) Strength Measurement 7 (lbs) Special Tests Wrist Finklestein Test Positive Left QuickDASH Activities Please rate your ability to do the following activities in the last week by selecting the number below the appropriate response. 1. Open a tight or new jar. 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 3. Carry a shopping bag or briefcase. Severe difficulty 4. Wash your back. Moderate difficulty 5. Use a knife to cut food. Severe difficulty 6. Recreational activities in which you Moderate difficulty take some force or impact through your arm, shoulder, or hand (e.g., golf, hammering, tennis, etc.). 7. During the past week, to what extent Moderately has your arm, shoulder or hand problem interfered with your normal social activities with family, friends, neighbors or groups? 8. During the past week, were you Moderately limited limited in your work or other regular daily activites as a result of your arm, shoulder or hand problem? 9. Arm, shoulder or hand pain. Moderate 10. Tingling (pins and needles) in your Severe arm, shoulder or hand. 11. During the past week, how much So much difficulty that I can' difficulty have you had sleeping because t sleep of the pain in your arm, shoulder or hand? Quick DASH 38 Outpatient Therapy Assessment Impairments Problems/Impairmments Palpation Tenderness,Impaired Range of Motion,Impaired Strength,Impaired Lifting, Impaired Household Care, Impaired Recreational Activities,Impaired Work Activities,Subjective C/O Pain Prognosis Rehab Potential Good Clinical Impression Consistent with Diagnosis Yes Short Term Goals Number of Weeks 2 Decrease Subjective C/O Pain Yes: 5/10 at worst Patient to be Ind w/ HEP Yes Leadership Coach Goals Number of Weeks 4-6 Decreased Palpation Tenderness Yes: 1/4 Increase Range of Motion Yes: WNL Increase Strength Yes: 5/5 wrist; = contra manager real estate Restore Ability to Lift Objects to Yes: 10 lb's without Shoulder Level difficulty Restore Ability to Lift Objects Overhead Yes: Improve Ability For Household Care Yes Improve Tolerance to Work Activities Yes Improve Quick Dash Score Yes: <10 Outpatient Therapy Plan of Care Treatment Plan May Include Therapeutic Exercise Including Home Yes Exercise Program Manual Therapy Techniques Yes Neuromuscular Re-education Yes Therapeutic Activities to Return to Yes Previous Functional/Work Level Gait Training Yes ADL/Self Care Education Yes Dry Needling Yes Thermal Modalities Yes Electrical Stimulation Yes Ultrasound/Phonophoresis Yes Iontophoresis Yes Parrafin Yes Orthotics/Bracing/Splinting Yes Massage Yes Eval/Re-Eval Yes Frequency Times per week 2-3 Duration Number of Weeks 4-6 Addendums This patient is a candidate for social No or vocational rehab? Patient/Guardian verbally acknowledges Yes understanding of treatment program and consents to further treatment? Patient/Guardian verbally acknowledges Yes understanding of diagnosis, prognosis and goals for treatment? Eval Complexity PT Charges 13219 - Moderate Complexity Shoulder/Elbow Eval Shoulder Objective Measurements Elbow Objective Measurements PHYSICIAN CERTIFICATION: I certify the specified therapy services for Angelica Duran are required, authorized, and reviewed every 30 days.
== END 2024-09-17 23:59 | disposition home or self-care (01) ==
LOC: PT 08:00
PROVIDERS: Visit Provider Internal Medicine
DX: M65.4 Radial styloid tenosynovitis [de Quervain] (principal)
CPT/HCPCS: 20561; 97010; 97012; 97014; 97035; 97110; 97163; 97530; 97760; G0283

== ENCOUNTER 2024-09-25 11:58 | Day surgery (SDC) | payer BC, SELFPAY ==
[2024-09-25 12:15] VITALS: BP 144/81; PULSE 87; RESP 16; TEMP 36.6; O2SAT 94; BMI 44.5
[2024-09-25] MEDS: IOPAMIDOL-200 (41%);10ML VIAL IV (12:38)
[2024-09-25 12:42] VITALS: BP 151/85; PULSE 87; RESP 16; O2SAT 97
--- NOTE | 2024-09-25 12:48 | P.PCN_ITS ---
Procedure Date: 09/25/24 Time: 12:30 Anesthesiologist:: Noah Flores CRNA Complications:: None Pre-procedure Diagnosis:: DJD right CMC joint. Right radial wrist pain. Right thumb pain. Post-procedure Diagnosis:: Same. Indications for Procedure:: Patient is a pleasant 34-year-old female who comes our clinic today for right CMC joint injection. She describes right radial wrist pain including the thumb as constant, dull, aching. I discussed in detail with the patient regarding diagnosis. We discussed CMC joint inflammation versus de Quervain's syndrome. We decided to start with right CMC joint injection of cortisone and local anesthetic. Patient will follow-up in 2 weeks. Procedure Details:: Details of the procedure explained to the patient. The patient taken to procedure room placed in the sitting position. The right hand was placed on the fluoroscopy table. The right hand was cleansed using chlorhexidine as a cleansing solution. Using fluoroscopy guidance a 25-gauge 1 inch needle was used to access the the right CMC joint. Needle position was confirmed using contrast dye. At this time after negative aspiration 1 cc of 1% lidocaine including 20 mg of Depo-Medrol was injected. Needle was removed. Band-Aid appl ied. Patient tolerated procedure without difficulty. There are no complications. Plan and Disposition:: Patient was reevaluated 10 minutes post procedure. She reports 95% improvement in terms of her right wrist/thumb pain. Mobility much better with minimal pain. She will follow-up with us in 2 weeks.
[2024-09-25] MEDS: LIDOCAINE 1% 5ML PF VIAL 5 ML (13:42)
[2024-09-25] MEDS: BUPIVACAINE 0.25% 10ML INJ 25 MG IJ (13:43)
[2024-09-25] MEDS: methylPREDNISolone ACETATE 80MG/ML VIAL 80 MG (13:43)
== END 2024-09-25 12:42 | disposition home or self-care (01) ==
LOC: SC.PAINP 11:59
PROVIDERS: PCP Internal Medicine; Visit Provider Nurse Anesthetist, Certified Registered
DX: M18.11 Unilateral primary osteoarthritis of first carpometacarpal joint, right hand (principal); M25.531 Pain in right wrist; M79.644 Pain in right finger(s)
CPT/HCPCS: 20600; J1010; Q9966

== ENCOUNTER 2024-10-08 15:14 | Outpatient (POV) | payer BC, SELFPAY ==
--- NOTE | 2024-10-08 15:18 | EXP.PAIN.SOA ---
[facility] Disclaimer: The information contained in this section may have been updated after the patient was seen, as this information can be updated by other users. Medical History Post-viral cough syndrome Rhinovirus infection Upper respiratory infection COVID-19 Fever and chills Close exposure to 2019 novel coronavirus Frequent headaches Otitis media Worsening headaches Chronic headaches Headache Forearm injury Viral gastroenteritis Hematoma of frontal scalp Minor head injury Sinusitis History of COVID-19 Migraine Hypertension Endometriosis Hemorrhoid Hypothyroidism (~01/16/18) Vitamin D deficiency (~01/16/18) Heart murmur Dyshidrotic eczema Insomnia RF Trazodone Weight gain Ingrown toenail Refer to podiatry. Surgical History History of endometrial ablation History of bilateral salpingectomy Dermoid tumor REMOVED Hx of dilation and curettage Hx of tonsillectomy Family History Other Cancer Diabetes Heart attack Hypertension Social History Smoking Status: Never smoker alcohol intake: never substance use type: denies use current occupational status: employed Travel in the last 8 weeks: None household members: spouse and other housing: house marital status: PM Subjective & Objective Subjective Subjective:: Patient is a pleasant 34-year-old female who presents today for follow-up of a right carpometacarpal Joint injection on 09/25/2024. she denies any new trauma or injury. Today she rates her pain a 5 out of 10. Patient does state that she had approximately 60% improvement but it did take a little while for it to kick in. Patient states that when she went home the pain was very excruciating and it took several hours for it to finally ease off. Patient does state that she feels like it is a lot better now than when it was originally. She states that she just has to be mindful not to hit it up against anything because that does cause significant pain. She does state that she has been back to her primary care and they did discuss that if it continues and does not get any better in future they may look at sending her to orthopedics for surgical intervention. Patient does state that she has limited availability due to short-term disability with her work so this would just be down the road in the future.Patient was previously prescribed compounded cream and diclofenac 75 mg twice a day from our office. She states today that the compounded cream for what ever reason really seem to cause a burning when she did apply it so she has discontinued this. Patient states that she did try the diclofenac however did not notice any additional improvement. Patient has been tried on meloxicam in the past. Patient does state she has also been given ibuprofen 800 as well in the past and that did seem like it would help occasionally. She denies any heart or kidney issues.Her Luis has been reviewed and is appropriate. Review of Systems: General: No recent weight changes, no fever, no sleep disturbances Respiratory: No cough, no shortness of air, no recurring pulmonary infections Cardiovascular/peripheral vascular: No chest pain, no palpitations, no edema, no shortness of breath Gastrointestinal: No new onset incontinence, normal bowel movements reported Genitourinary: No new onset incontinence Musculoskeletal: Right wrist/finger pain Psychiatric: [Normal mood/affect] Neurological: [Denies weakness in extremities], [denies balance issues] Pain at rest (0-10 scale): 5 Objective Objective:: Physical Exam: General: Alert and oriented x3, no acute distress, pleasant and cooperative Lungs: Respirations even and unlabored, symmetrical chest expansion Eyes: PERRL Musculoskeletal: Flexion and extension of right wrist somewhat guarded secondary to pain, [antalgic gait noted] Neurological: Speech clear, no gross sensory deficit Has patient had previous pain injection?: Yes Percent improvement in pain since last injection: 60% Conservative treatment options previously tried: Home exercise plan Length of treatment: Longer than 12 weeks Meds Home Medications and Allergies Home Medications ?Medication ?Instructions ?Recorded ?Confirmed ?Type Right Wrist Splint 09/06/24 09/06/24 History diclofenac sodium 75 mg 75 mg PO BID #28 tabs 09/06/24 09/25/24 Rx tablet,delayed release New Prescriptions to Start Prescriptions: Allergies Allergy/AdvReac Type Severity Reaction Status Date / Time Sulfa (Sulfonamide Allergy Mild Verified 09/05/24 08:53 Antibiotics) (SULFA (SULFONAMIDE ANTIBIOTICS)) Assessment and Plan *Assessment and plan (1) De Quervain's disease (tenosynovitis): Status: Acute Category: Medical Code(s): M65.4 - Radial styloid tenosynovitis [de Quervain] (2) Right wrist pain: Status: Resolved Category: Medical Code(s): M25.531 - Pain in right wrist Plan Patient has had improvement following her joint injection. We will continue to monitor her progress and have her return to clinic in 6 weeks. I did discuss with the patient that we can try Celebrex and send in a 2-week prescription. Patient was counseled to discontinue all other NSAIDs while taking this medication and to take it with food to minimize GI upset. I did also discuss with patient that I will also send a prescription of ibuprofen 800 mg in case the Celebrex makes no changes. Patient was counseled to not take the 2 medications together and to discontinue all use of 1 medication before starting the other. Patient was counseled to contact our office between now and her next visit if the Celebrex does provide significant relief and she does want additional refills. I did also discuss with the patient in future if she ends up deciding that she wants to go the surgical route that I would recommend she see a hand specialist and that we can always send her for referral if needed. We will follow-up with this at future visits. Patient will return to clinic in 6 weeks for reevaluation of symptoms and plan of care. Patient has been instructed to contact the clinic with any concerns before the next appointment. Dr. Lu has reviewed this note and agrees with this plan of care. This note was dictated using voice recognition software and make contain errors or omissions. All injections are used with Lidocaine, Bupivacaine and Depo Medrol. Occasionally urine drug screen is needed to verify patient's compliance with our office pain contract. This is ordered based off specific treatments related to chronic pain with the potential to abuse certain medications.
[2024-10-08 15:45] VITALS: BP 138/89; PULSE 80; RESP 16; O2SAT 96; BMI 43.9
== END 2024-10-08 23:59 | disposition home or self-care (01) ==
PROVIDERS: PCP Internal Medicine; Visit Provider Nurse Practitioner Family
DX: M65.4 Radial styloid tenosynovitis [de Quervain] (principal); M25.531 Pain in right wrist
CPT/HCPCS: 99212; G0463

== ENCOUNTER 2025-02-01 15:52 | Outpatient (CLI) | payer BC, SELFPAY ==
--- NOTE | 2025-02-01 15:55 | XR_ITS ---
FINAL REPORT CLINICAL HISTORY: Left knee pain FINDINGS: AP, lateral and oblique views of the left knee were obtained. There is no prior exam for comparison. There is no acute osseous abnormality of the left knee. The joint space is preserved. The soft tissues are normal. There is no joint effusion. IMPRESSION: No acute osseous abnormality of the left knee. Reviewed, Interpreted and Dictated by Erin Edmonds MD Transcribed by Demetra Ruth Authenticated and [facility]
== END 2025-02-01 23:59 | disposition home or self-care (01) ==
LOC: RAD 15:53
PROVIDERS: PCP Internal Medicine; Visit Provider Internal Medicine
DX: M25.562 Pain in left knee (principal)
CPT/HCPCS: 73562

== ENCOUNTER 2025-04-22 12:40 | Outpatient (CLI) | payer BC, SELFPAY ==
--- NOTE | 2025-04-22 12:42 | XR_ITS ---
FINAL REPORT CLINICAL HISTORY: right wrist pain, swelling, tendinitis x 1+ yr FINDINGS: AP, oblique, and lateral views of the right wrist were obtained. There is no prior exam for comparison. There is no acute fracture or dislocation. The joint spaces are preserved. The soft tissues are normal. IMPRESSION: No acute osseous abnormality of the right wrist. Reviewed, Interpreted and Dictated by Erin Edmonds MD Transcribed by UMESH Santillan Authenticated and [facility]
--- OUTSIDE RECORDS SUMMARY | 2025-04-22 12:47 | XMS_ITS | Clinical Summary ---
Author Organization [facility] Address [address] [place] [id number] Care Team Providers Care Food Inspector Name Role Phone Pcp, No Primary Care Provider [phone] Source Comments This information has been disclosed to you from confidential records protectedfrom disclosure by state law. You shall make no further disclosure of thisinformation without the specific, written, and informed release of theindividual to whom it pertains, or as otherwise permitted by law. A generalauthorization for the release of medical or other information is not sufficientfor the purposes of therelease of HIV test results or diagnoses. [id number] Health Allergies Active Allergy Reactions Criticality Noted Date Comments Sulfa (Sulfonamide Antibiotics) 08/26 Medications cortisone acetate (CORTISONE IM) Inject into the muscle. Active venlafaxine HCl (VENLAFAXINE ORAL) Take by mouth. Active losartan (COZAAR) 50 MG tablet Take 1 tablet (50 mg total) by mouth daily. Active Family History Medical History Relation Comments Diabetes Mother Hypertension Mother Relation Status Comments Mother Social History Tobacco Use Types Packs/Day Years Used Date Smoking Tobacco: Never Smokeless Tobacco: Never Tobacco Cessation:Counseling Given: Not Answered Alcohol Use Standard Drinks/Week Comments Not Currently 0 (1 standard drink = 0.6 oz pur e alcohol) Comments No Sex and Gender Information Value Date Recorded Sex Assigned at Not on file Legal Sex Female 11:30 AM EST Gender Identity Not on file Sexual Orientation Not on file Last Filed Vital Signs Vital Sign Reading Time Taken Comments Blood Pressure 122/82 09/13/2023 1:46 PM EST Pulse - - Temperature - - Respiratory Rate - - Oxygen Saturation - - Inhaled Oxygen Concentration - - Weight 126.1 kg (278 lb) 09/13/2023 1:46 PM EST Height 170.2 cm (5' 7 ) 09/13/2023 1:46 PM EST Body Mass Index 43.54 09/13/2023 1:46 PM EST Plan of Treatment Health Maintenance Due Date Last Done Comments Alcohol Misuse Screening 2006 Depression Screening 2006 HIV Screening 2006 Immunization: DTaP/Tdap/Td ( 1 - Tdap) 2007 Immunization: Hepatitis B (1 of 3 - 19+ 3-dose series) 2007 Cervical Cancer Screening/Pa p Smear (MyChart) 2018 Immunization: COVID-19 ( season) 2024 Diabetes Screening 09/13/2024 09/13/2023 Immunization: Influenza (MyC romo) (#1) 2025 Hepatitis C Screening (MyChart) Completed Immunization: Pneumococcal Aged Out N o longer eligible based on patient's age to complete this topic Procedures Procedure Name Priority Date/Time Associated Diagnosis Comments HEMOGLOBIN A1C Routine 09/13/2023 2:43 PM EST HEPATITIS C AB W/REFLEX TO HCV RNA, QN, PCR Routine 09/13/2023 2:43 PM EST from Last 3 Months or Most Recently Relevant to Health Maintenance Results * Hepatitis C Ab w/reflex to HCV RNA, QN, PCR (09/13/2023 2:43 PM EST) HCV Ab Non Reactive Non Reactive [facility] 1 09/13/2023 2:43 PM EST 09/13/2023 Narrative [facility] - 09/14/2023 6:07 AM EST Performed at: 01 - [facility] [id number] Food Inspector: Casey Desai PhD, Phone: [phone] us Ann Marie Reis [facility] LAB BLOOD ORDERABLES Final Resu lt [facility] 1 * (ABNORMAL) Hemoglobin A1c (09/13/2023 2:43 PM EST) Hemoglobin A1C 6.1(H) 4.8 - 5.6 % [facility] 1 Comment: Prediabetes: 5.7 - 6.4 Diabetes: >6.4 Glycemic control for adults with diabetes: <7.0 09/13/2023 2:43 PM EST 09/13/2023 Narrative [facility] - 09/14/2023 10:07 AM EST Performed at: 01 - [facility] [address] [id number] Food Inspector: Casey Desai PhD, Phone: [phone] us Ann Marie Reis ELECTROENCEPH[employer] TECHNOLOGIST LAB BLOOD ORDERABLES Final Resu lt [facility] 1 from Last 3 Months or Most Recently Relevant to Health Maintenance Insurance [facility] Care Teams Food Inspector Relationship Specialty Start Date End Date Pcp, No No Address PCP - General 08/08/23
--- OUTSIDE RECORDS SUMMARY | 2025-04-22 12:47 | XMS_ITS | Clinical Summary ---
Author Organization Healthcare Address [address] [place] [address] Care Team Providers Care Devulcanizer Charger Name Role Phone Unavailable Primary Care Provider Unavailabl e Social History Tobacco Use Types Packs/Day Years Used Date Smoking Tobacco: Never Assessed Comments Unknown Sex and Gender Information Value Date Recorded Sex Assigned at Not on file Legal Sex Female 10:32 AM EDT Gender Identity Not on file Sexual Orientation Not on file Plan of Treatment Health Maintenance Due Date Last Done Comments [facility]-Depression Screening 1988 [facility]-Infant/Child/Adol SDOH Screenings 1988 [facility]-Varicella Vaccines (1 of 2 - 13+ 2-dose series) 2001 HPV Vaccines (1 - 3-dose series) 2003 [facility]- SDOH Screenings 2006 [facility]-Adult SDOH Screenings 2006 [facility]-DTaP,Tdap,and Td Vaccine s (1 - Tdap) 2007 [facility]-Hepatitis B Vaccines (1 of 3 - 19+ 3-dose series) 2007 [facility]-Pap Smear 2009 [facility]-Cervical Cancer Screening 2018 [facility]-HPV/Cotest 2018 [id number] Vaccine (1 - 20 24-25 season) 2024 [facility]-Influenza Vaccine (#1) 2025 [facility]-Zoster Vaccines (1 of 2) 2038 [facility]-HIB Vaccines Aged Out No longer e ligible based on patient's age to complete this topic [facility]-Hepatitis A Vaccines Aged Out No longer eligible based on patient's age to complete this topic [facility]-IPV Vaccines Aged Out No longer e ligible based on patient's age to complete this topic [facility]-Pneumococcal Vaccine: Pediatrics (0 to 5 Years) and At-Risk Patients (6 to 49 Years) Aged Out No long er eligible based on patient's age to complete this topic [facility]-Rotavirus Vaccines Aged Out No lo nger eligible based on patient's age to complete this topic Insurance [employer]LLEN
== END 2025-04-22 23:59 | disposition home or self-care (01) ==
LOC: RAD 12:41
PROVIDERS: PCP Internal Medicine; Visit Provider Nurse Practitioner Family
DX: M65.4 Radial styloid tenosynovitis [de Quervain] (principal)
CPT/HCPCS: 73110

== ENCOUNTER 2025-06-28 17:57 | Emergency (ER) | payer BC, SELFPAY ==
--- OUTSIDE RECORDS SUMMARY | 2025-05-13 09:20 | XMS_ITS | Encounter Summary ---
Author Organization [facility] Address [address] [place] [id number] Care Team Providers Care Full Fashioned Garment Knitter Name Role Phone Antony Cramer DO Primary Care Provider + Reason for Referral * Surgical (Routine) - Authorized Specialty Diagnoses / Procedures Referred By Jameel montano Referred To Contact Diagnoses De Quervain's tenosynovitis Procedures External Facility Surgical/Procedural Request Juan Antonio Lobato MD [address] [place] [address] Phone: tel: fax: [facility] AT [address] [address] Phone: tel: fax: Referral ID Status Reason Start Date Expiration Date V isits Requested Visits Authorized Authorized Other 05/13/2025 08/12/2026 1 1 Reason for Visit * Reason Comments Pain Radial styloid tenos ynovitis of right hand * Consultation (Routine) - Closed Specialty Diagnoses / Procedures Referred By Jameel montano Referred To Contact Orthopedic Surgery Diagnoses Radial styloid tenosynovitis of right hand Steve Rodriguez, DAWN [address] [place] [address] Phone: tel: fax: Juan Antonio Lobato MD [address] [place] [address] [address] Phone: tel: fax: Referral ID Status Reason Start Date Expiration Date Visits Re quested Visits Authorized [id number] Closed 05/06/2025 08/05/2026 1 1 Encounter Details Date Type Department Care Team (Late st Contact Info) Description 05/13/2025 9:20 AM EDT Office Visit [facility] 3000 [facility] [address] [place] [phone] Juan Antonio Lobato MD 6824 [facility] [address] [place] [phone] De Quervain's tenosynovitis (Primary Dx); Right wrist pain Social History Tobacco Use Types Packs/Day Years Used Date Smoking Tobacco: Never Assessed Abuse Screen Answer Date Recorded Unsafe at Home or Work/School Not on file Feels Threatened by Someone? Not on file 08/2023 Does Anyone Keep You from Co ntacting Others or Doint Things Outside the Home? Not on file 07/07/2023 Physical Sign of Abuse Present Not on file 1 Housing Stability Answer Date Recorded Current Living Arrangements Not on file 06/26 Potentially Unsafe Housing Conditions Not on mitra e 07/07/2023 Family and Community Support Answer Prateek e Recorded Help with Day-to-Day Activities Not on file 07/07/2023 Lonely or Isolated Not on file 07/07/2023 Employment Answer Date Recorded Do you want help finding or keeping work or a liss b? Not on file 07/07/2023 Disabilities Answer Date Recorded Concentrating, Remembering, or Making Decisions Difficulty Not on file 07/07/2023 Doing Errands Independently Difficulty Not on fi le 07/07/2023 Education Answer Date Recorded Help with school or training? Not on file Preferred Language Not on file 07/07/2023 Comments No Sex and Gender Information Value Date Recorded Sex Assigned at Not on file Legal Sex Female 3:27 PM EST Gender Identity Not on file Sexual Orientation Not on file documented as of this encounter Last Filed Vital Signs Vital Sign Reading Time Taken Comments Blood Pressure 134/86 05/13/2025 9:13 AM EDT Pulse - - Temperature - - Respiratory Rate - - Oxygen Saturation - - Inhaled Oxygen Concentration - - Weight 122 kg (268 lb) 05/13/2025 9:13 AM EDT Height 168.9 cm (5' 6.5 ) 05/13/2025 9:13 AM EDT Body Mass Index 42.61 05/13/2025 9:13 AM EDT documented in this encounter Progress Notes * Juan Antonio Lobato MD - 05/13/2025 9:20 AM EDT Images from the original note were not included. [facility] Orthopedic Office Visit Date: 05/13/2025 Patient Name: Angelica Duran Date of : 1990 Referring Physician: Steve Rodriguez PA-C Chief Complaint: Chief Complaint Patient presents with Right Wrist - Pain Radial styloid tenosynovitis of right hand History of Present Illness: Angelica Duran is a 34 y.o. female jxguv-[id number] presents for evaluation of right radial wrist pain of 1 year duration. She denies inciting injury. She works at [employer] and reports that she repetitively lifts heavy objects at work. She reports worsening right radial wrist pain that radiates distally into her thumb. She has tried anti-inflammatories physical therapy bracing and 1 previous corticosteroid injection. Only 3 months of relief after injection. She reports pain is a 6 out of 10. She denies smoking. She has no other relevant medical history. Subjective Review of Systems: Review of Systems Pertinent review of systems per HPI. I reviewed the patient's chief complaint, history of present illness, review of systems, past medical history, surgical history, family history, social history, medications and allergy list in the EMR on 05/13/2025 and agree with the findings above. Objective Vital Signs: Vitals: 05/13/25 0913 BP: 134/86 BP Location: Left arm Patient Position: Sitting Cuff Size: Adult Weight: 122 kg (268 lb) Height: 168.9 cm (66.5 ) PainSc: 6 PainLoc: Hand BMI: Body mass index is 42.61 kg/m??. General Appearance: No acute distress. Alert and oriented. Chest: Non-labored breathing on room air. Regular rate and rhythm. Upper Extremity Exam: Tender palpation of the right radial styloid. Significantly positive Jen's test. Nontender over the thumb A1 juan. Nontender over the thumb CMC. Fingers are warm, well-perfused with appropriate capillary refill. Palpable radial pulse. Sensation intact to light touch in median, radial and ulnar nerve distributions. Motor- Fires [employer], ulnar intrinsics, EPL/EDC w/ full active and passive range of motion. Strength intact. Non-tender except for in the areas highlighted Imaging/Studies: Imaging Results (Last 24 Hours) Procedure Component Value Units Date/Time XR Wrist 3+ View Right [[id number]] Resulted: 05/13/25938 Updated: 05/13/25938 Narrative: Right Wrist X-Ray Indication: Pain Views: AP, Lateral, and Oblique Comparison: None Findings: No fracture No bony lesion Normal soft tissues Normal joint spaces Impression: No acute bony abnormality MRI of the right wrist from outside hospital was independently reviewed and interpreted myself and demonstrates inflammation around the first extensor compartment tendons consistent with de Quervain's tenosynovitis Procedures: Procedures Quality Measures: ACP: ACP discussion was deferred. Tobacco: Angelica Duran has no history on file for tobacco use. Assessment / Plan Assessment/Plan: Diagnoses and all orders for this visit: Right wrist pain - XR Wrist 3+ View Right De Quervain's tenosynovitis Other orders - diclofenac (VOLTAREN) 75 MG EC tablet; Take 1 tablet by mouth. (Patient not taking: Reported on 05/13/2025) - traZODone (DESYREL) 50 MG tablet; Take 1 tablet by mouth Every Night. Angelica Duranis a 34 y.o. female who presents with: ICD-10-CM ICD-9-CM 1. De Quervain's tenosynovitis M65.4 727.04 2. Right wrist pain M25.531 719.43 Patient presents with right wrist de Quervain's tenosynovitis. We discussed her diagnosis as well as treatment options include bracing anti-inflammatories corticosteroid injection versus surgery. Thepatient has had 1 previous corticosteroid injection with only 3 months of relief. Discussed repeat c orticosteroid injection for surgery and the patient like to proceed with scheduling surgery under MAC anesthesia. Follow Up: Return for Follow Up after Post Op. Juan Antonio Lobato MD [facility] and Upper Extremity Surgeon documented in this encounter Plan of Treatment Upcoming Encounters Date Type Department Care Team (Late st Contact Info) Description 07/08/2025 9:00 AM EDT Office Visit [facility] MEDICINE 3000 [facility] [address] [place] [address] Juan Antonio Lobato MD 1760 [facility] [address] [place], [place] [id number] Scheduled Orders Name Type Priority Associated Diagnoses Orde r Schedule External Facility Surgical/Procedural Request Procedures Routine De Quervain's tenosynovitis Expected: 05/13/2025, Expires: 05/13/2026 documented as of this encounter Procedures Procedure Name Priority Date/Time Associated Diagnosis Comments XR WRIST 3+ VW RIGHT Routine 05/13/2025 9:36 AM EDT Right wrist pain documented in this encounter Results * XR Wrist 3+ View Right (05/13/2025 9:36 AM EDT) Anatomical Region Laterality Modality Upper Extremities, Wrist Right Radiogr aphic Imaging Narrative 05/13/2025 9:39 AM EDT Right Wrist X-Ray Indication: Pain Views: AP, Lateral, and Oblique Comparison: None Findings: No fracture No bony lesion Normal soft tissues Normal joint spaces Impression: No acute bony abnormality us Juan Antonio Lobato MD IMG DIAGNOSTIC IMAGING O RDERABLES Final Result documented in this encounter Visit Diagnoses Diagnosis De Quervain's tenosynovitis- Primary Radial styloid tenosynovitis Right wrist pain Pain in joint, forearm documented in this encounter Care Teams Full Fashioned Garment Knitter Relationship Specialty Start Date End Date Antony Cramer DO [address] [place] [address] PCP - General Internal Medicine 05/09/25 documented as of this encounter
--- OUTSIDE RECORDS SUMMARY | 2025-05-13 09:30 | XMS_ITS | Encounter Summary ---
Author Organization [facility] ystem Address [address] [place] [address] Care Team Providers Care Safety Pin Assembling Machine Operator Name Role Phone Antony Cramer DO Primary Care Provider + Encounter Details Date Type Department Care Team (Late st Contact Info) Description 05/13/2025 9:30 AM EDT Ancillary Procedure [facility] 3000 [facility] [address] [place] [address] Social History Tobacco Use Types Packs/Day Years [...] on file documented as of this encounter Plan of Treatment Upcoming Encounters Date Type Department Care Team (Late st Contact Info) Description 07/08/2025 9:00 AM EDT Office Visit [facility]IC[facility] 3000 [facility] [address] [place] [address] Juan Antonio Lobato MD 1760 [facility] [address] [place] [address] documented as of this encounter Procedures Procedure [...] joint spaces Impression: No acute bony abnormality Juan Antonio Lobato MD IMG DIAGNOSTIC IMAGING O RDERABLES Final Result documented in this encounter Visit Diagnoses Not on filedocumented in this encounter Care Teams Safety Pin Assembling Machine Operator Relationship Specialty Start Date End Date Antony Cramer DO [address] [place] [address] PCP - General Internal Medicine 05/09/25 documented as of this encounter
[2025-06-28 18:01] VITALS: BP 173/121; PULSE 95; RESP 20; TEMP 37.1; O2SAT 96; BMI 40.6
--- OUTSIDE RECORDS SUMMARY | 2025-06-28 18:01 | XMS_ITS | Clinical Summary ---
Author Organization [facility] Address [address] [place] [address] Care Team Providers Care Commercial Insurance Underwriter Name Role Phone Unavailable Primary Care Provider [...] Date Last Done Comments [facility]-Depression Screening 1988 [facility]-/Child/Adol SDOH Screenings 1988 [facility]-Varicella Vaccines (1 of 2 - 13+ 2-dose series) 2001 [facility]- SDOH Screenings 2006 [facility]-Adult SDOH Screenings 2006 [facility]-DTaP,Tdap,and Td Vaccine s (1 - Tdap) 2007 [facility]-Hepatitis B Vaccines (1 of 3 - 19+ 3-dose series) 2007 [facility]-Pap Smear 2009 HPV Vaccines (1 - 3-dose SCD M series) 2015 [facility]-Cervical Cancer Screening 2018 [facility]-HPV/Cotest 2018 [facility]B-ALBOL-80 Vaccine (1 - 20 24-25 season) 2025 [facility]-Influenza Vaccine (#1) 2025 [facility]-Zoster Vaccines (1 [...]
--- OUTSIDE RECORDS SUMMARY | 2025-06-28 18:01 | XMS_ITS | Clinical Summary ---
Author Organization [facility] Address [address] [place] [address] Care Team Providers Care Bowling Floor Manager Name Role Phone Pcp, No Primary Care [...] therelease of HIV test results or diagnoses. [id number] Health Allergies Active Allergy Reactions Criticality Noted [...] Cervical Cancer Screening/Pa p Smear (MyChart) 2018 Diabetes Screening 09/13/2024 09/13/2023 Immunization: COVID-19 ( season) 2025 Immunization: Influenza (MyC romo) (#1) 2025 Hepatitis [...] 6:07 AM EST Performed at: 01 - [facility] [id number] Library Associate: Casey Desai PhD, Phone: [phone] us Ann Marie Reis [facility] LAB BLOOD ORDERABLES Final Resu lt [facility] 1 * (ABNORMAL) Hemoglobin A1c (09/13/2023 2:43 PM EST) Hemoglobin A1C 6.1(H) 4.8 - 5.6 % [facility] 1 Comment: Prediabetes: 5.7 - 6.4 Diabetes: >6.4 Glycemic control for adults with diabetes: <7.0 09/13/2023 2:43 PM EST 09/13/2023 Narrative [facility] - 09/14/2023 10:07 AM EST Performed at: 01 - [facility] [address] [id number] Library Associate: Casey Desai PhD, Phone: [phone] us Ann Marie Reis [facility] LAB BLOOD ORDERABLES Final Resu lt [facility] 1 from Last 3 Months or Most Recently Relevant to Health Maintenance Insurance [facility] Care Teams Bowling Floor Manager Relationship Specialty Start Date End Date Pcp, No No Address PCP - General 08/08/23
--- OUTSIDE RECORDS SUMMARY | 2025-06-28 18:01 | XMS_ITS | Patient Health Record ---
Author Organization [facility] Address 1210 [facility] [address] [place] [id number] Care Team Providers Care Vendor Specialist Name Role Phone Martinez Blue Unavailable [phone] Allergies Allergen (clinical drug ingredient) Drug/Non Drug Allergy documented on EMR Reaction Allergy Type Onset Date Status Substance with sulfonamide structure and antibacterial mechanism of action (substance) Sulfa Antibiotics Unknown Drug Allergy Active Reason For Referral No Information Medications Medication SIG (Take, Route, Frequency, Duration) Notes Start Date End Date Status Metoprolol Succinate 25 MG 1 capsule Ora lly Once a day; Duration: 30 day(s) 05/12/2023 Active Immunizations Vaccine Route Administration Date Status Comme nts MMR Unknown 01/12/2001 Administered HEPB VACC PED/ADOL DOSE IM Unknown 01/12/2001 Administe red HEPB VACC PED/ADOL DOSE IM Unknown 02/14/2001 Administe red COVID 19 Pfizer Unknown 07/18/2021 Administered COVID 19 Pfizer Unknown 08/08/2021 Administered Problems Problem Type SNOMED Code ICD Code Onset Dates Problem Status W/U Status Risk Notes Problem New daily persistent headache (931700286097064 ) New daily persistent headache (G44.52) Active confirmed Problem Essential hypertension (95373935) Hypertension, unspecified type (I10) Active confirmed Plan Of Treatment Pending Test Test Name Order Date P-ANN 05/12/2023 Insurance Providers Payer Name Payer Address Payer Phone Subscriber Number Group Number Insured Name Patient Relationship to Insured Coverage Start Date Coverage End Date MAKEDA RODRIGUEZ [employer] [address] [place] [address] [id number] SYLVAIN ZEPEDA Self - patient is the insured Medical (General) History Medical History History ICD Code Hypertension Surgical History Surgery Date(Month/Year) Tonsillectomy 1996 Tumorright ovary 2004 D&C 2021
--- OUTSIDE RECORDS SUMMARY | 2025-06-28 18:01 | XMS_ITS | Encounter Summary ---
Author Organization [facility] Address [address] [place] [address] Care Team Providers Care Tank Car Reconditioner Name Role Phone Antony Cramer DO Primary Care Provider + Encounter Details Date Type Department Care Team (Late st Contact Info) Description 06/24/2025 Documentation [facility] [address] [facility] [address] [place] [address] Juan Antonio Lobato MD 1760 [facility] [address] [place] [address] Social History Tobacco Use Types Packs/Day Years [...] on file documented as of this encounter Progress Notes * Juan Antonio Lobato MD - 06/24/2025 6:21 AM EDT PATIENT NAME: Angelica Duran DATE OF SURGERY: 06/24/25 DATE OF : 1990 LOCATION: [facility] PROCEDURES PERFORMED: 1. Right De Quervains release CPT 21265 SURGEON: Juan Antonio Lobato MD ASSISTANTS: 1. None ANESTHESIA: MAC PREOPERATIVE DIAGNOSES: 1. Right wrist dequervains tenosynovitis POSTOPERATIVE DIAGNOSES: Same ESTIMATED BLOOD LOSS: 1 mL. SPECIMENS: None IMPLANTS: None COMPLICATIONS: None INDICATIONS: Angelica Duran is a 34 y.o. female who initially presented with right de quervains tenosynovitis that has failed conservative measures. The risks, benefits, alternatives and potentialcomplications of surgery were discussed with the patient including but not limited to bleeding scarring, infection, recurrence, stiffness, damage to surrounding structures or postoperative pain. The patient understands the risks and agreed to proceed with surgery. A surgical informed consent was signed prior to the procedure. DESCRIPTION OF PROCEDURE: The patient was greeted in the pre-operative holding area and the surgical site was marked and consent confirmed prior to bringing the patient to the operating room. The patient was then taken to the operating room and a timeout was performed including the patient's name, procedure and antibiotic administration prior to the patient receiving anesthesia. The patient was positioned supine on the operative room table and a non-sterile tourniquet was applied to the right upper extremity and a combination of 1% lidocaine with epinephrine and 0.5% Marcaine was injected at the site of the incision for local anesthesia. . The upper extremity it was then prepped and draped in the usual sterile fashion. An 3 cm oblique incision was made directly first dorsal compartment at the radial styloid. Blunt dissection was used to extend the dissection down to the level of the extensor retinaculum. Care was taken to protect and gently retract the radial sensory nerve just dorsal to the plane of dissection. The extensor retinaculum was then incised using a 15 blade under direct visualization. There was serous fluid upon incision of the tendon sheath. There is also notable thickening of the tendon sheath proximally. The sheath was incised along its entirely. There was a separate subs sheath to the extensor pollicis brevis tendon. Both the EPB and APL was identified and confirmed to be fully released. . The tourniquet was then let down and the wound irrigated with normal saline solution. Skin was closed with 4-0 nylon in horizontal mattress fashion. Thumb spica splint was applied. At the end of the procedure the patient was transferred to the PACU in stable condition. I participated in all parts of the case. POSTOPERATIVE PLAN: No lifting greater than 5 pounds with the operative extremity. 2. Over the counter Tylenol and/or Advil/Aleve/Motrin for pain control. 3. Dressing and splint may be removed in 7 days and replaced with a dry daily dressing. Steri strips are to remain in place. 4. Follow up in 10-14 days as scheduled. documented in this encounter Plan of Treatment Upcoming Encounters Date Type Department Care Team (Late st Contact Info) Description 07/08/2025 9:00 AM EDT Office Visit [facility] MEDICINE 3000 [facility] [address] [place] [address] Juan Antonio Lobato MD 1760 [facility] [address] [place] [address] documented as of this encounter Visit Diagnoses Not on filedocumented in this encounter Care Teams Tank Car Reconditioner Relationship Specialty Start Date End Date Antony Cramer DO [address] [place] [address] PCP - General Internal Medicine 05/09/25 documented as of this encounter
--- OUTSIDE RECORDS SUMMARY | 2025-06-28 18:01 | XMS_ITS | Encounter Summary ---
Author Organization [facility] ystem Address [address] [place] [address] Care Team Providers Care Plumbing Service Technician Name Role Phone Antony Cramer DO Primary Care Provider + Encounter Details Date Type Department Care Team (Latest Contact Info) Description 05/13/2025 Travel Social History Tobacco Use Types Packs/Day Years [...] Description 07/08/2025 9:00 AM EDT Office Visit [facility]TS MEDICINE 3000 [facility] [address] [place] [address] Juan Antonio Lobato MD 1760 [facility] [address] [place], [place] [id number] documented as of this encounter Visit Diagnoses Not on filedocumented in this encounter Care Teams Plumbing Service Technician Relationship Specialty Start Date End Date Antony Cramer DO [facility] [facility] [address] [place] [address] PCP - General Internal Medicine 05/09/25 documented as of this encounter
--- OUTSIDE RECORDS SUMMARY | 2025-06-28 18:01 | XMS_ITS | Clinical Summary ---
[facility] Address [address] [place] [address] Care Team Providers Care Desk Representative Name Role Phone Antony Cramer DO Primary Care Provider + Allergies Active Allergy Reactions Criticality Noted Date Comments Sulfa Antibiotics Rash Low 09/03/2019 Medications traZODone (DESYREL) 50 MG tablet Take 1 tablet by mouth Every Night. 5 Active oxyCODONE (ROXICODONE) 5 MG immediate release tabletIndicati ons:Post-opera tive state Take 1 tablet by mouth Every 6 (Six) Hours As Needed for Severe Pain. 12 tablet 5 Active acetaminophen (Tylenol) 325 MG tablet Take 2 tablets by mouth Every 6 (Six) Hours As Needed for Moderate Pain. 100 tablet 1 5 Active ibuprofen (ADVIL,MOTRIN) 600 MG tablet Take 1 tablet by mouth Every 6 (Six) Hours As Needed for Moderate Pain. 90 tablet 5 Active diclofenac (VOLTAREN) 75 MG EC tablet Take 1 tablet by mouth. 5 025 Discontinued Active Problems No known active problems Encounters Date Type Department Care Team Description 06/24/2025 Documentation [facility]OPED[facility]TS MEDICINE 3000 [facility] 310 [place] [address] Juan Antonio Lobato MD 06/20/2025 Telephone [facility] 3000 [facility] [address] [place] [address] Juan Antonio Lobato MD SNAPP, WILLIAM KELSEY MD_SX STATUS 05/13/2025 9:30 AM EDT Ancillary Procedure [facility] 3000 [facility] [address] [place] [address] 05/13/2025 9:20 AM EDT Office Visit [facility] MEDIC[facility] 3000 [facility] [address] [place] [address] Juan Antonio Lobato MD De Quervain's tenosynovitis (Primary Dx); Right wrist pain 05/13/2025 Travel from Last 3 Months Social History Tobacco Use Types Packs/Day Years [...] Pressure 134/86 05/13/2025 9:13 AM EDT Pulse 88 09/03/2019 3:39 PM EST Temperature 36.6 C (97.8 F) 09/03/2019 3:39 PM EST Respiratory Rate 16 09/03/2019 3:39 PM EST Oxygen Saturation 96% 09/03/2019 3:39 PM EST Inhaled Oxygen Concentration - - Weight 122 kg (268 lb) 05/13/2025 9:13 AM EDT Height 168.9 cm (5' 6.5 ) 05/13/2025 9:13 AM EDT Body Mass Index 42.61 05/13/2025 9:13 AM EDT Plan of Treatment Upcoming Encounters Date Type Department Care Team (Late st Contact Info) Description 07/08/2025 9:00 AM EDT Office Visit [facility]TS MEDICINE 3000 [facility] [address] [place] [address] Juan Antonio Lobato MD 3711 [facility] [address] [place], [place] [address] Health Maintenance Due Date Last Done Comments Annual Gynecologic Pelvic an d Breast Exam 1988 TDAP/TD VACCINES (1 - Tdap) 2007 PAP SMEAR 2009 ANNUAL PHYSICAL 09/03/2019 HEPATITIS C SCREENING 09/03/2019 INFLUENZA VACCINE 04/26/2025 Pneumococcal Vaccine 0-49 Aged Out No longer eligible based on patient's age to complete this topic Procedures Procedure Name Priority Date/Time Associated Diagnosis Comments XR WRIST 3+ VW RIGHT Routine 05/13/2025 9:36 AM EDT Right wrist pain from Last 3 Months Results * XR Wrist 3+ View Right [...] IMG DIAGNOSTIC IMAGING O RDERABLES Final Result from Last 3 Months Insurance [facility] PPO Care Teams Desk Representative Relationship Specialty Start Date End Date Antony Cramer DO [address] [place] [address] PCP - General Internal Medicine 05/09/25
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
[2025-06-28] MEDS: ACETAMINOPHEN 500MG TAB 1000 MG PO (18:26)
[2025-06-28 18:53] VITALS: BP 153/96; PULSE 90; O2SAT 95
[2025-06-28 20:01] VITALS: BP 121/84; PULSE 94; RESP 16; TEMP 36.7; O2SAT 96
== END 2025-06-28 20:03 | disposition home or self-care (01) ==
PROVIDERS: Emergency Provider Student in an Organized Health Care Education/Training Program
DX: M54.50 Low back pain, unspecified (principal); V49.50XA Passenger injured in collision with unspecified motor vehicles in traffic accident, initial encounter
CPT/HCPCS: 70450; 71045; 72125; 72128; 72131; 73502; 99283; 99285